=== PATIENT | female | born 1985 | race Caucasian/White ===

== ENCOUNTER 2017-05-14 21:52 | Outpatient (CLI) | payer OTHER, MEDICAID ==
[2017-05-14 22:35] LABS: APPEARANCE,URINE CLEAR; BILIRUBIN,URINE NEGATIVE (NEGATIVE); GLUCOSE, URINE 150 mg/dL (NEGATIVE); KETONES,URINE NEGATIVE (NEGATIVE); LEUKOCYTE ESTERASE,URINE NEGATIVE (NEGATIVE); NITRITE,URINE NEGATIVE (NEGATIVE); PROTEIN,URINE NEGATIVE (NEGATIVE); URINE SPECIFIC GRAVITY 1.002; UROBILINOGEN,URINE NEGATIVE mg/dL (<2.0)
[2017-05-14 22:51] LABS: URINE BARBITURATES SCREEN NEGATIVE; URINE METHADONE SCREEN NEGATIVE; URINE OPIATES LOW NEGATIVE; URINE PHENCYCLIDINE SCREEN NEGATIVE
--- NOTE | 2017-05-15 00:03 | Non Stress Test Report ---
Non Stress Test Datetime Report Generated by CPN: 05/15/2017 00:03 DEMOGRAPHIC EGA NST: 35.5 INDICATION Indication for Study: Ordered by Provider; Other Indication for Study (NST) Other: LC URINE RESULTS Urine Protein, NST: Negative Urine Ketones - NST: Negative Urine Glucose - NST: Negative Urine Blood - NST: Negative MONITORING Monitor Explained: Monitor Explained; Test Explained; Patient Verbalized Understanding Time on Monitor: 05/14/2017 22:08 Time off Monitor: 05/14/2017 23:09 NST Duration: 61 NST INTERVENTIONS NST Interventions: PO Hydration; Reposition Patient Physician Notified NST: Dr Lo BABY A: [id number] BABY A Movement : Present Contraction Frequency : 3-14 FHR Baseline : 140 Accelerations : 15X15 Decelerations : None Variability : Moderate 6-25bpm NST Review: Meets Criteria for Reactive NST NST Review and Verified By : Garcia Bowles RN NST Results: Reactive NST REPORT Report Trigger: Send Report
== END 2017-05-14 23:24 | disposition home or self-care (01) ==
LOC: LC 21:52
PROVIDERS: ATTEND Obstetrics & Gynecology Gynecology
PROC: 4A1HXCZ Monitoring of Products of Conception, Cardiac Rate, External Approach (ICD-10-PCS; principal; 2017-05-14)
DX: O47.03 False labor before 37 completed weeks of gestation, third trimester (principal); Z3A.35 35 weeks gestation of pregnancy
CPT/HCPCS: 80307; 81005

== ENCOUNTER 2017-05-21 10:58 | Outpatient (CLI) | payer OTHER, MEDICAID ==
--- NOTE | 2017-05-21 11:41 | Non Stress Test Report ---
Non Stress Test Datetime Report Generated by CPN: 05/21/2017 11:40 DEMOGRAPHIC EGA NST: 36.5 INDICATION Indication for Study: Ordered by Provider; Other VITAL SIGNS Temperature - NST: 98.1 Pulse - NST: 102 RESP - NST: 18 NBPSYS NST: 116 NBPDIA NST: 60 MONITORING Monitor Explained: Monitor Explained; Test Explained; Patient Verbalized Understanding Time on Monitor: 05/21/2017 11:10 NST INTERVENTIONS NST Interventions: PO Hydration; Reposition Patient Physician Notified NST: DR CHRISTOPHER BABY A: [id number] BABY A Movement : Present Contraction Frequency : NONE FHR Baseline : 150 Accelerations : 15X15 Decelerations : None Variability : Moderate 6-25bpm NST Review: Meets Criteria for Reactive NST NST Review and Verified By : Doreen Rouse [facility] NST Results: Reactive NST REPORT Report Trigger: Send Report
== END 2017-05-21 11:46 | disposition home or self-care (01) ==
LOC: LC 10:58
PROVIDERS: ATTEND Obstetrics & Gynecology
PROC: 4A1HXCZ Monitoring of Products of Conception, Cardiac Rate, External Approach (ICD-10-PCS; principal; 2017-05-21)
DX: Z36.89 Encounter for other specified antenatal screening (principal); Z3A.36 36 weeks gestation of pregnancy
CPT/HCPCS: 59025

== ENCOUNTER 2017-05-25 10:19 | Inpatient (IN) | payer OTHER, MEDICAID ==
[2017-05-25 11:25] LABS: AMNISURE (ROM) NEGATIVE (NEGATIVE)
[2017-05-25 11:30] LABS: APPEARANCE,URINE SLIGHTLY-CLOUDY; BILIRUBIN,URINE NEGATIVE (NEGATIVE); GLUCOSE, URINE NEGATIVE (NEGATIVE); KETONES,URINE NEGATIVE (NEGATIVE); LEUKOCYTE ESTERASE,URINE TRACE (NEGATIVE); NITRITE,URINE NEGATIVE (NEGATIVE); PROTEIN,URINE NEGATIVE (NEGATIVE); URINE SPECIFIC GRAVITY 1.003; UROBILINOGEN,URINE NEGATIVE mg/dL (<2.0)
[2017-05-25 11:45] LABS: URINE BARBITURATES SCREEN NEGATIVE; URINE METHADONE SCREEN NEGATIVE; URINE OPIATES LOW NEGATIVE; URINE PHENCYCLIDINE SCREEN NEGATIVE
[2017-05-25] MEDS ORDERED: RINGERS SOLUTION,LACTATED 1,000 ML IV ONE (11:51)
[2017-05-25 12:41] LABS: ABSOLUTE LYMPHOCYTES (AUTO) 2.1 10^3/uL (0.5-4.7); ABSOLUTE MONOCYTES (AUTO) 0.4 10^3/uL (0.1-1.4); ABSOLUTE NEUT (AUTO) 7.5 10^3/uL (1.7-8.2); BASOPHILS % (AUTO) 0.5 % (0-2); EOSINOPHILS % (AUTO) 0.5 % (0-6); HEMATOCRIT 29.6 % (36.0-47.0); HEMOGLOBIN 9.8 g/dL (12.0-15.5); HGB HCT DIFFERENCE -0.2; LYMPHOCYTES % (AUTO) 20.5 % (13-45); MEAN CORPUSCULAR HEMOGLOBIN 24.7 pg (27.0-33.4); MEAN CORPUSCULAR VOLUME 75 fl (80-97); MONOCYTES % (AUTO) 4.1 % (3-13); RED BLOOD COUNT 3.97 10^6/uL (3.72-5.28); SEGMENTED NEUTROPHILS % (AUTO) 74.4 % (42-78)
[2017-05-25] MEDS ORDERED: FENTANYL/BUPIVACAINE/NS/PF 200 MCG/100 ML RTUINJ EPI ONE (13:55)
[2017-05-25] MEDS ORDERED: EPHEDRINE SULFATE INJ 50 MG/1 ML AMPULE ONE (13:55)
[2017-05-25] MEDS ORDERED: BUPIVACAINE HCL 0.25 % INJ/PF (2.5 MG/1 ML) 30 ML VIAL ONE (13:56)
[2017-05-25] MEDS ORDERED: MISOPROSTOL 0.2 MG TABLET ONE (15:20)
--- NOTE | 2017-05-25 15:20 | L&D Progress Notes ---
PROGRESS NOTES Datetime Report Generated by CPN: 05/25/2017 15:19 PROGRESS NOTE Impression: Normal Progression of Labor Procedures: Artificial ROM; Sterile Vag Exam Plan: Continue Present Management Informed Consent Obtained: Vaginal Delivery Vital Signs : Reviewed; Within Normal Limits Comment: admitted for early active labor. Already was scheduled for IOL this pm due to MS, Mitochondrial myopathy, Psych issues (per MFM pt reports suicidal ideation in the past but would not act on it). MFM recommended BTL be done in hospital prior to discharge after baby is born. Cvx 5cm on admission. 6cm now and AROM clear fluid. Anticpate . VAGINAL EXAM Dilatation: 6 Effacement: 75 Station: -2 Contractions: irregular MEMBRANES Membranes: Ruptured Amniotic Fluid Color: Clear FETUS A FHR - Baseline: 135 Monitoring: External US Variability: Moderate 6-25bpm Accelerations: 15X15 Decelerations: None FHR Category: Category I Presentation: Vertex SIGNATURE SIGNATURE: [id number] SIGNATURE: [id number] SIGNATURE: [id number] SIGNATURE: [id number] Signature: with User ID: [email or web address]
[2017-05-25] MEDS ORDERED: LIDOCAINE 1% INJ-PF (10 MG/ML) 30 ML SDV ONE (15:21)
[2017-05-25] MEDS ORDERED: OXYTOCIN/NORMAL SALINE 20 UNIT/1,000 ML RTUINJ ONE (17:28)
[2017-05-25] MEDS ORDERED: PROMETHAZINE HCL 25 MG TABLET PO PRN (18:28)
[2017-05-25] MEDS ORDERED: PROMETHAZINE HCL INJ 25 MG/1 ML VIAL IV PRN (18:28)
[2017-05-25] MEDS ORDERED: DIBUCAINE 1% OINTMENT 28 GM TP PRN (18:28)
[2017-05-25] MEDS ORDERED: MAGNESIUM HYDROXIDE SUSP 30 ML UDCUP PO PRN (18:28)
[2017-05-25] MEDS ORDERED: ZOLPIDEM TARTRATE 5 MG TABLET PO PRN (18:28)
[2017-05-25] MEDS ORDERED: BENZOCAINE/MENTHOL AEROSOL SPRAY 56 ML TOP PRN (18:28)
[2017-05-25] MEDS ORDERED: PROMETHAZINE HCL 25 MG SUPP.RECT PR PRN (18:28)
[2017-05-25] MEDS ORDERED: OXYTOCIN/NORMAL SALINE 20 UNIT/1,000 ML RTUINJ IV PRN (18:28)
[2017-05-25] MEDS ORDERED: NA PHOS,M-B/NA PHOS,DI-BA (ADULT) 133 ML ENEMA PR PRN (18:28)
[2017-05-25] MEDS ORDERED: DIPH/PERTUSS(ACELL)/TETANUS VAC/PF 0.5 ML SYR (>=10YO) IM PRN (18:28)
[2017-05-25] MEDS ORDERED: GLYCERIN/WITCH HAZEL LEAF 1 EACH MED..PAD TP PRN (18:28)
[2017-05-25] MEDS ORDERED: DIPHENHYDRAMINE HCL 25 MG CAPSULE PO PRN (18:28)
[2017-05-25] MEDS ORDERED: PSEUDOEPHEDRINE HCL 30 MG TABLET PO PRN (18:28)
[2017-05-25] MEDS ORDERED: MEASLES,MUMPS&RUBELLA VACC/PF 0.5 ML VIAL SUBCUT PRN (18:28)
[2017-05-25] MEDS ORDERED: ACETAMINOPHEN 650 MG SUPP.RECT PR PRN (18:28)
[2017-05-25] MEDS ORDERED: DEXTROSE 40% GEL 15 GM TUBE PO PRN ×2 (18:32)
[2017-05-25] MEDS ORDERED: DEXTROSE 50%-WATER 25 GM/50 ML DISP.SYRIN IV PRN ×2 (18:32)
[2017-05-25] MEDS ORDERED: GLUCAGON,HUMAN RECOMB 1 MG INJ SUBCUT PRN (18:32)
[2017-05-25] MEDS ORDERED: MISOPROSTOL 0.2 MG TABLET PR ONE (18:33)
--- NOTE | 2017-05-25 19:51 | Delivery Summary ---
Del Sum A-C Datetime Report Generated by CPN: 05/25/2017 19:51 DELIVERY PERSONNEL DELIVERY PERSONNEL: [id number] Delivery Doctor:: Danita Rivera MD Labor and Delivery Nurse:: Nola Roblero RN Labor and Delivery Nurse:: Shanika Henry RN Admissions Supervisor/FOOD SERVICES MANAGER: Enid Sanz, GENERAL EXPEDITOR Admissions Supervisor/FOOD SERVICES MANAGER: Apolonia Pendleton CNA II Additional Personnel: : ELMER Pineda MATERNAL INFORMATION Delivery Anesthesia: Epidural Medications During Delivery: cytotec 1000mcg per rectum, Pitocin IV Medications After Delivery: Pitocin Drip 20 Units/1000ml NSS; Other-Please Comment Meds After Delivery Comment: 1000mcg Cytotec OK Estimated Blood Loss (ml): 250 Maternal Complications: None Provider Comments: VMI delivered in JONATHAN presentation. No nuchal cord. Shoulders and body delivered without difficulty. Cord doubly clamped and cut and infant to maternal abd for NRP. Placenta delivered intact spontaneously. FF at U. H/o hemorrhage with prior therefore cytotec 1000mcg given per rectum. SHe desires PPBTL so will make NPO after midnight. No perineal lacerations. Good hemostasis. Mother and baby stable upon provider leaving the room. LABOR SUMMARY EDC: 06/13/2017 00:00 No. Babies in Womb: 1 Attempted: No Labor Anesthesia: Epidural LABOR INFORMATION Reason for Induction: Not Applicable Reason for Induction- Other: Worsening MS, Psych issues, Mitochondrial Myopathy Onset of Labor: 05/25/2017 15:13 Complete Dilatation: 05/25/2017 17:41 Oxytocin: N/A Group B Beta Strep: negative Steroids Given: None Reason Steroids Not Administered: Not Applicable MEMBRANES Membranes Rupture Method: Artificial Rupture of Membranes: 05/25/2017 15:13 Length of Rupture (hr): 2.95 Amniotic Fluid Color: Clear Amniotic Fluid Amount: Moderate Amniotic Fluid Odor: Normal STAGES OF LABOR Stage 1 hr: 2 Stage 1 min: 28 Stage 2 hr: 0 Stage 2 min: 29 Stage 3 hr: 0 Stage 3 min: 4 Total Time in Labor hr: 3 Total Time in Labor min: 1 VAGINAL DELIVERY Episiotomy: None Laceration #1: None Laceration Extension #1: N/A Laceration Repair: Not Applicable CSECTION DELIVERY Primary Indication: N/A Secondary Indication: N/A CSection Incidence: N/A Labor: N/A Elective: N/A CSection Incision: N/A BABY A INFORMATION Infant Delivery Date/Time: 05/25/2017 18:10 Method of Delivery: Vaginal Born in Route : No : N/A Forceps: N/A Vacuum Extraction: N/A Shoulder Dystocia : No PRESENTATION/POSITION BABY A Presentation: Cephalic Cephalic Presentation: Vertex Vertex Position: Left Occipital Anterior Breech Presentation: N/A PLACENTA INFORMATION BABY A Placenta Delivery Time : 05/25/2017 18:14 Placenta Method of Delivery: Spontaneous Placenta Status: Delivered SCORES BABY A Heart Rate 1 min: >100 bpm Resp Effort 1 min: Good Cry Reflex Irritability 1 min: Cough or Sneeze or Pulls Away Muscle Tone 1 min: Active Motion Color 1 min: Body Peters, Extremities Blue SCORE 1 MIN: 9 Heart Rate 5 min: >100 bpm Resp Effort 5 min: Good Cry Reflex Irritability 5 min: Cough or Sneeze or Pulls Away Muscle Tone 5 min: Active Motion Color 5 min: Body Peters, Extremities Blue Resuscitation Effort 5 min: Tactile Stimulation SCORE 5 MIN: 9 INFORMATION BABY A Gestational Age at Delivery: 37.2 Gestational Status: Early Term- 37- 38.6 Weeks Infant Outcome : Liveborn Condition : Stable Sex: Male IDENTIFICATION BABY A Verification Date/Time: 05/25/2017 19:46 ID Band Number: [id number] Mother's Name Verified: Yes RN Verifying : O Noemí RN Additional Verifying Personnel: [facility] WEIGHT/LENGTH BABY A Infant Birthweight (gm): 3400 Infant Weight (lb): 7 Infant Weight (oz): 8 Length (in): 20.50 Infant Length (cm): 52.07 CORD INFORMATION BABY A No. Cord Vessels: 3 Nuchal Cord : N/A Cord Blood Taken: Yes-For Eval (Mom's Blood Type - or O+) Infant Suction: None ASSESSMENT BABY A Infant Complications: None Physical Findings at Delivery: Within Normal Limits Infant Respirations: Appears Normal Skin to Skin: Yes Skin to Skin Time (min): 60 Manager Freelance/ALS Called : No Infant Care By: Melissa Rouse RN Transferred To: Remains with Mother SIGNATURES Signature: with User ID: [email or web address]
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
[2017-05-25] MEDS: IBUPROFEN 800 MG TABLET PO SCH (21:23)
[2017-05-25] MEDS: FAMOTIDINE 20 MG TABLET PO SCH (21:26)
[2017-05-26] MEDS: IBUPROFEN 800 MG TABLET PO SCH (05:24)
[2017-05-26 07:25] LABS: HEMATOCRIT 29.6 % (36.0-47.0); HEMOGLOBIN 9.8 g/dL (12.0-15.5); HGB HCT DIFFERENCE -0.2; MEAN CORPUSCULAR HEMOGLOBIN 24.6 pg (27.0-33.4); MEAN CORPUSCULAR VOLUME 75 fl (80-97); RED BLOOD COUNT 3.97 10^6/uL (3.72-5.28); RED CELL DISTRIBUTION WIDTH 16.1 % (11.5-14.0); WHITE BLOOD COUNT 13.2 10^3/uL (4.0-10.5)
[2017-05-26 07:35] VITALS: BP 121/71
[2017-05-26] MEDS ORDERED: SENNOSIDES/DOCUSATE 8.6-50 MG 1 EACH TABLET PO SCH (10:00)
[2017-05-26] MEDS ORDERED: PRENATAL VITAMIN W DHA CAPSULE PO SCH (10:00)
[2017-05-26] MEDS: FAMOTIDINE 20 MG TABLET PO SCH (10:00)
[2017-05-26] MEDS ORDERED: DOCUSATE SODIUM 100 MG CAPSULE PO SCH (10:00)
[2017-05-26] MEDS ORDERED: FERROUS SULFATE 325 MG TABLET PO SCH (10:00)
--- NOTE | 2017-05-26 10:13 | PDOC PROGRESS REPORT ---
Subjective-OB Subjective: Post Delivery Day: 1 32 year old. Denies any needs at this time, states lochia is stable, pain well controlled, voiding without difficulty. Physical Exam (OB) Vital Signs: Temp Pulse Resp BP Pulse Ox 97.3 F 67 15 121/71 100 05/26/17 07:19 05/26/17 07:19 05/26/17 07:19 05/26/17 07:19 05/26/17 07:19 Intake & Output 05/25/17 05/26/17 05/27/17 06:59 06:59 06:59 Intake Total 300 Balance 300 Weight 77.2 kg - Lochia Lochia Amount: Small 10-25 ml Lochia Color: Rubra/Red - Abdomen Description: Soft, Round Hernia Present: No Fundal Description: Firm, Midline Fundal Height: u/u - u/2 Objective-Diagnostic Laboratory: 05/26/17 06:56 05/25/17 05/25/17 05/25/17 10:30 12:27 12:28 WBC 10.0 RBC 3.97 Hgb 9.8 L Hct 29.6 L MCV 75 L MCH 24.7 L MCHC 33.0 RDW 16.0 H Plt Count 242 Seg Neutrophils % 74.4 Lymphocytes % 20.5 Monocytes % 4.1 Eosinophils % 0.5 Basophils % 0.5 Absolute Neutrophils 7.5 Absolute Lymphocytes 2.1 Absolute Monocytes 0.4 Absolute Eosinophils 0.0 Absolute Basophils 0.0 Urine Color YELLOW Urine Appearance SLIGHTLY-CLOUDY Urine pH 7.0 Ur Specific [place] 1.003 Urine Protein NEGATIVE Urine Glucose (UA) NEGATIVE Urine Ketones NEGATIVE Urine Blood NEGATIVE Urine Nitrite NEGATIVE Ur Leukocyte Esterase TRACE H Urine WBC (Auto) 3 Urine RBC (Auto) 1 Blood Type O POSITIVE Antibody Screen NEGATIVE 05/26/17 06:56 WBC 13.2 H RBC 3.97 Hgb 9.8 L Hct 29.6 L MCV 75 L MCH 24.6 L MCHC 33.0 RDW 16.1 H Plt Count 184 Seg Neutrophils % Lymphocytes % Monocytes % Eosinophils % Basophils % Absolute Neutrophils Absolute Lymphocytes Absolute Monocytes Absolute Eosinophils Absolute Basophils Urine Color Urine Appearance Urine pH Ur Specific [place] Urine Protein Urine Glucose (UA) Urine Ketones Urine Blood Urine Nitrite Ur Leukocyte Esterase Urine WBC (Auto) Urine RBC (Auto) Blood Type Antibody Screen Assessment and Plan(PN) - Assessment and Plan (1) Grand multiparity in labor and delivery, antepartum Is this a current diagnosis for this admission?: Yes Plan: routine pp care (2) Mitochondrial myopathy Is this a current diagnosis for this admission?: Yes Plan: n/a (3) 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
--- NOTE | 2017-05-26 11:23 | PDOC DISCHARGE SUMMARY ---
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 Is this a current diagnosis for this admission?: Yes Discharge Data - Discharge Medication Home Medications: Dextroamphetamine/Amphetamine [Adderall 10 mg Tablet] 1 tab PO BID 05/07/17 Ferrous Sulfate [Iron] 1 tab PO BID 05/07/17 Escitalopram Oxalate [Lexapro 10 mg Tablet] 1 tab PO DAILY 05/21/17 Multivit-Min36/Iron/Folic Acid [Geritol Complete Tablet] 1 tab PO DAILY Omeprazole Magnesium [Prilosec Otc] 1 tab PO DAILY 05/21/17 Ranitidine HCl [Zantac] 1 tab PO DAILY 05/21/17 Docusate Sodium [Colace 100 mg Capsule] 100 mg PO BID #60 capsule 05/26/17 Ferrous Sulfate [Feosol 325 mg Tablet] 325 mg PO BID #60 tablet 05/26/17 Ibuprofen [Motrin 800 mg Tablet] 800 mg PO Q8 #60 tablet 05/26/17 Gestational Age: 37.2 Reason(s) for Admission: Induction of Labor Procedures: NST Intrapartum Procedure(s): Spontaneous Vaginal Delivery - [place] Data Baby 1 Male at 1 minute: 9 at 5 minutes: 9 Weight: 3400 kg Home with Mother: Yes Complications: No - Diagnosis Test Laboratory: Temp Pulse Resp BP Pulse Ox 97.3 F 67 15 121/71 100 05/26/17 07:19 05/26/17 07:19 05/26/17 07:19 05/26/17 07:19 05/26/17 07:19 05/25/17 05/25/17 05/26/17 10:30 12:27 06:56 RBC 3.97 3.97 Hgb 9.8 L 9.8 L Hct 29.6 L 29.6 L Urine Opiates Screen NEGATIVE - Discharge information/Instructions Discharge Activity: Activity As Tolerated, Pelvic Rest, No tub bath Discharge Diet: Regular Disposition: HOME, SELF-CARE Follow up with: [facility] in: 1, Weeks - mood check, extensive psych hx
== END 2017-05-26 12:30 | disposition home or self-care (01) | DRG 775 ==
LOC: LC 10:19 → LR 12:02 → 2S 20:15
PROVIDERS: ADMIT Student in an Organized Health Care Education/Training Program; ATTEND Student in an Organized Health Care Education/Training Program
PROC: 10E0XZZ Delivery of Products of Conception, External Approach (ICD-10-PCS; principal; 2017-05-25)
PROC: 4A1HXCZ Monitoring of Products of Conception, Cardiac Rate, External Approach (ICD-10-PCS; 2017-05-25)
DX: O99.354 Diseases of the nervous system complicating childbirth (principal); O99.344 Other mental disorders complicating childbirth; G71.3 Mitochondrial myopathy, not elsewhere classified; G35 Multiple sclerosis; F17.210 Nicotine dependence, cigarettes, uncomplicated; F41.9 Anxiety disorder, unspecified; F32.9 Major depressive disorder, single episode, unspecified; F31.9 Bipolar disorder, unspecified; Z88.6 Allergy status to analgesic agent; Z91.410 Personal history of adult physical and sexual abuse; Z37.0 Single live birth
CPT/HCPCS: 36415; 80307; 81001; 84112; 85025; 85027; 86592; 86850; 86900; 86901; 94760; J2590; J3490

== ENCOUNTER 2018-10-08 11:08 | Inpatient (IN) | payer MEDICAID, OTHER ==
[2018-10-08] MEDS ORDERED: ONDANSETRON HCL INJ/PF 4 MG/2 ML SDV IV ONE (11:28)
[2018-10-08] MEDS ORDERED: FENTANYL CITRATE INJ/PF 100 MCG/2 ML AMPUL IV ONE (11:28)
--- NOTE | 2018-10-08 11:30 | ER Document Report ---
ED Medical Screen (RME) - General Chief Complaint: Abdominal Pain Stated Complaint: CHEST AND BACK PAIN Time Seen by Provider: 10/08/18 11:24 Primary Care Provider: VALE WHITE MD [Primary Care Provider] - Follow up as needed Mode of Arrival: Ambulatory Information source: Patient Notes: Patient is a 33-year-old female who presents to the emergency department with 1 week history of epigastric pain. Patient reports the pain starts in her upper abdomen, radiates up to the epigastric area as well as right upper quadrant and shoots straight through to her back. Patient reports associated nausea, vomiting and diarrhea. She denies any fever. Exam: Significant tenderness to right upper quadrant. I have greeted and performed a rapid initial assessment of this patient. A comprehensive ED assessment and evaluation of the patient, analysis of test results and completion of the medical decision making process will be conducted by additional ED providers. Dictation of this chart was performed using voice recognition software; therefore, there may be some unintended grammatical errors. TRAVEL OUTSIDE OF THE [place] IN LAST 30 DAYS: No - Related Data Allergies/Adverse Reactions: morphine [Morphine] Adverse Reaction (Verified 05/21/17 11:18) Past Medical History Pulmonary Medical History: Reports: Hx Asthma Musculoskeltal Medical History: Reports Hx Multiple Sclerosis Psychiatric Medical History: Reports: Hx Anxiety, Hx Bipolar Disorder Past Surgical History: Reports: Hx Gynecologic Surgery - for endometroisis - Immunizations Hx Diphtheria, Pertussis, Tetanus Vaccination: Yes History of Influenza Vaccine for 04/2017 - 09/2017 Season: No Physical Exam - Vital signs Vitals: Temp Pulse Resp BP Pulse Ox 98.1 F 96 21 H 147/95 H 100 10/08/18 11:21 10/08/18 11:21 10/08/18 11:21 10/08/18 11:21 10/08/18 11:21 Course - Vital Signs Vital signs: Temp Pulse Resp BP Pulse Ox 98.1 F 96 21 H 147/95 H 100 10/08/18 11:21 10/08/18 11:21 10/08/18 11:21 10/08/18 11:21 10/08/18 11:21 Doctor's Discharge - Discharge Referrals: VALE WHITE MD [Primary Care Provider] - Follow up as needed
[2018-10-08 11:53] LABS: ABSOLUTE BASOPHILS # (AUTO) 0.1 10^3/uL (0.0-0.2); ABSOLUTE EOSINOPHILS # (AUTO) 0.2 10^3/uL (0.0-0.6); ABSOLUTE LYMPHOCYTES (AUTO) 2.1 10^3/uL (0.5-4.7); ABSOLUTE MONOCYTES (AUTO) 0.4 10^3/uL (0.1-1.4); EOSINOPHILS % (AUTO) 3.3 % (0-6); HEMATOCRIT 37.6 % (36.0-47.0); HEMOGLOBIN 12.5 g/dL (12.0-15.5); LYMPHOCYTES % (AUTO) 30.9 % (13-45); MEAN CORPUSCULAR HEMOGLOBIN 27.6 pg (27.0-33.4); MEAN CORPUSCULAR HGB CONC 33.3 g/dL (32.0-36.0); MEAN CORPUSCULAR VOLUME 83 fl (80-97); MONOCYTES % (AUTO) 5.8 % (3-13); PLATELET COUNT 309 10^3/uL (150-450); RED BLOOD COUNT 4.53 10^6/uL (3.72-5.28); RED CELL DISTRIBUTION WIDTH 17.7 % (11.5-14.0); TOTAL CELLS COUNTED % (AUTO) 100 %; WHITE BLOOD COUNT 6.9 10^3/uL (4.0-10.5)
[2018-10-08 12:06] LABS: AMORPHOUS SEDIMENT,URINE TRACE /HPF; APPEARANCE,URINE CLOUDY; BILIRUBIN,URINE NEGATIVE (NEGATIVE); COLOR,URINE YELLOW; GLUCOSE, URINE NEGATIVE (NEGATIVE); KETONES,URINE NEGATIVE (NEGATIVE); LEUKOCYTE ESTERASE,URINE NEGATIVE (NEGATIVE); NITRITE,URINE NEGATIVE (NEGATIVE); PROTEIN,URINE 30 mg/dL (NEGATIVE); URINE SPECIFIC GRAVITY 1.021; UROBILINOGEN,URINE NEGATIVE mg/dL (<2.0)
[2018-10-08 12:25] LABS: ALANINE AMINOTRANSFERASE 139 U/L (9-52); ALBUMIN 4.4 g/dL (3.5-5.0); ALKALINE PHOSPHATASE 116 U/L (38-126); ANION GAP 9 (5-19); ASPARTATE AMINO TRANSFERASE 186 U/L (14-36); BILIRUBIN,DIRECT 0.3 mg/dL (0.0-0.4); BILIRUBIN,TOTAL 0.5 mg/dL (0.2-1.3); BLOOD UREA NITROGEN 9 mg/dL (7-20); CALCIUM 10.1 mg/dL (8.4-10.2); CARBON DIOXIDE 23 mmol/L (22-30); CHLORIDE 104 mmol/L (98-107); GLUCOSE 103 mg/dL (75-110); LIPASE 1326.2 U/L (23-300); POTASSIUM 4.4 mmol/L (3.6-5.0); SODIUM 136.3 mmol/L (137-145); TOTAL PROTEIN 7.5 g/dL (6.3-8.2)
[2018-10-08] MEDS ORDERED: RINGERS SOLUTION,LACTATED 1,000 ML IV ONE (12:32)
[2018-10-08] MEDS ORDERED: HYDROMORPHONE HCL INJ/PF 2 MG/ML AMPULE IV ONE (12:33)
--- NOTE | 2018-10-08 12:37 | ER Document Report ---
ED General - General Chief Complaint: Abdominal Pain Stated Complaint: CHEST AND BACK PAIN Time Seen by Provider: 10/08/18 11:24 Primary Care Provider: VALE WHITE MD [Primary Care Provider] - Follow up as needed Mode of Arrival: Ambulatory Notes: Patient is a 33-year-old female that presents to the emergency department for chief complaint of epigastric abdominal pain. Patient reports having symptoms over the past week, but significant worse over the past few days, and today she had pain that radiated toward her back, with nausea, vomiting and diarrhea. Denies any blood in the vomiting. She denies any any fevers, chills, chest pain, shortness of breath, difficulty breathing. She states she does have a lot of nausea and diarrhea chronically. She states she usually does not eat much either, as a result. But it seems to be much worse over the past few days. She does admit to drinking 750 mL of liquor almost every day, she occasionally will not drink during a particular day, denies any history of alcohol withdrawal. Past Medical History: Mitochondrial myopathy Past Surgical History: Denies surgical history Social History: Admits to drinking alcohol on a daily basis, denies tobacco or illicit drug use. Family History: Reviewed and noncontributory for presenting illness Allergies: Reviewed, see documented allergy list. REVIEW OF SYSTEMS: Other than noted above, the 12 point review of systems was reviewed with the patient and were negative, all pertinent findings are included in the HPI. PHYSICAL EXAMINATION: Vital signs reviewed, nursing noted reviewed. GENERAL: Patient appears rather anxious, and uncomfortable on exam HEAD: Atraumatic, normocephalic. EYES: Eyes appear normal, extraocular movements intact, sclera anicteric, conjunctiva are normal. ENT: nares patent, oropharynx clear without exudates. Moist mucous membranes. NECK: Normal range of motion, supple without lymphadenopathy LUNGS: Breath sounds clear to auscultation bilaterally and equal. No wheezes rales or rhonchi. HEART: Heart rate tachycardic, regular rhythm ABDOMEN: Soft, significant epigastric tenderness to palpation as well as right upper quadrant tenderness with palpation, normoactive bowel sounds. No rebound, guarding, or rigidity. No masses appreciated. EXTREMITIES: Nontender, good range of motion, no pitting or edema. NEUROLOGICAL: No focal neurological deficits. Moves all extremities spontaneously Motor and sensory grossly intact on exam. PSYCH: Normal mood, normal affect. SKIN: Warm, Dry, normal turgor, no rashes or lesions noted on exposed skin TRAVEL OUTSIDE OF THE [place] IN LAST 30 DAYS: No - Related Data Allergies/Adverse Reactions: morphine [Morphine] Adverse Reaction (Verified 05/21/17 11:18) Past Medical History - General Information source: Patient - Social History Smoking Status: Unknown if Ever Smoked Family History: Reviewed & Not Pertinent Patient has suicidal ideation: No Patient has homicidal ideation: No Pulmonary Medical History: Reports: Hx Asthma Renal/ Medical History: Denies: Hx Peritoneal Dialysis Musculoskeletal Medical History: Reports Hx Multiple Sclerosis Psychiatric Medical History: Reports: Hx Anxiety, Hx Bipolar Disorder Past Surgical History: Reports: Hx Gynecologic Surgery - for endometroisis - Immunizations Hx Diphtheria, Pertussis, Tetanus Vaccination: Yes Physical Exam - Vital signs Vitals: Temp Pulse Resp BP Pulse Ox 98.1 F 96 21 H 147/95 H 100 10/08/18 11:21 10/08/18 11:21 10/08/18 11:21 10/08/18 11:21 10/08/18 11:21 Course - Re-evaluation Re-evalutation: Patient seen and examined vital signs reviewed. Laboratory data and imaging were ordered as appropriate for the patient's presenting symptoms and complaint, with consideration of any critical or life threatening conditions that may be associated with their obtained history and exam as noted above. Patient was treated with IV fluids, Zofran, and fentanyl initially Results were reviewed when available and demonstrated elevated lipase, and mild transaminitis, her right upper quadrant ultrasound was negative, no leukocytosis. The patient was re-evaluated and was still having some pain, she was given a one-time dose of IV Dilaudid 1 mg, which did seem to help her pain. Evaluation was most consistent with acute pancreatitis, and transaminitis Results were discussed with the patient at this point after careful consideration I feel that that patient should be admitted to the hospital. This was discussed with the patient that it is in the best interest for their care to be admitted for further evaluation and management. Patient agreed with this plan of care. A call was placed to the admitted physician, Enid Olvera CNP who graciously accepted the patient onto their service. *Note is created using voice recognition software and may contain spelling, syntax or grammatical errors. Laboratory 10/08/18 10/08/18 10/08/18 11:35 11:35 11:35 WBC 6.9 RBC 4.53 Hgb 12.5 Hct 37.6 MCV 83 MCH 27.6 MCHC 33.3 RDW 17.7 H Plt Count 309 Seg Neutrophils % 59.0 Lymphocytes % 30.9 Monocytes % 5.8 Eosinophils % 3.3 Basophils % 1.0 Absolute Neutrophils 4.0 Absolute Lymphocytes 2.1 Absolute Monocytes 0.4 Absolute Eosinophils 0.2 Absolute Basophils 0.1 Sodium 136.3 L Potassium 4.4 Chloride 104 Carbon Dioxide 23 Anion Gap 9 BUN 9 Creatinine 0.78 Est GFR ( Amer) > 60 Est GFR (Non-Af Amer) > 60 Glucose 103 Calcium 10.1 Total Bilirubin 0.5 Direct Bilirubin 0.3 Neonat Total Bilirubin Not Reportable Neonat Direct Bilirubin Not Reportable Neonat Indirect Bili Not Reportable AST 186 H ALT 139 H Alkaline Phosphatase 116 Total Protein 7.5 Albumin 4.4 Lipase 1326.2 H Serum HCG, Qual NEGATIVE Urine Color Urine Appearance Urine pH Ur Specific [place] Urine Protein Urine Glucose (UA) Urine Ketones Urine Blood Urine Nitrite Urine Bilirubin Urine Urobilinogen Ur Leukocyte Esterase Urine WBC (Auto) Urine RBC (Auto) U Hyaline Cast (Auto) Squamous Epi Cells Auto Amorphous Sediment Auto Urine Mucus (Auto) Urine Ascorbic Acid 10/08/18 11:35 WBC RBC Hgb Hct MCV MCH MCHC RDW Plt Count Seg Neutrophils % Lymphocytes % Monocytes % Eosinophils % Basophils % Absolute Neutrophils Absolute Lymphocytes Absolute Monocytes Absolute Eosinophils Absolute Basophils Sodium Potassium Chloride Carbon Dioxide Anion Gap BUN Creatinine Est GFR ( Amer) Est GFR (Non-Af Amer) Glucose Calcium Total Bilirubin Direct Bilirubin Neonat Total Bilirubin Neonat Direct Bilirubin Neonat Indirect Bili AST ALT Alkaline Phosphatase Total Protein Albumin Lipase Serum HCG, Qual Urine Color YELLOW Urine Appearance CLOUDY Urine pH 6.0 Ur Specific [place] 1.021 Urine Protein 30 H Urine Glucose (UA) NEGATIVE Urine Ketones NEGATIVE Urine Blood NEGATIVE Urine Nitrite NEGATIVE Urine Bilirubin NEGATIVE Urine Urobilinogen NEGATIVE Ur Leukocyte Esterase NEGATIVE Urine WBC (Auto) 2 Urine RBC (Auto) 1 U Hyaline Cast (Auto) 1 Squamous Epi Cells Auto 21 Amorphous Sediment Auto TRACE Urine Mucus (Auto) MANY Urine Ascorbic Acid 20 H Abdomen Ultrasound 10/08/18 11:28 IMPRESSION: FATTY INFILTRATION OF THE LIVER. OTHERWISE NORMAL RIGHT UPPER QUADRANT ULTRASOUND. - Vital Signs Vital signs: Temp Pulse Resp BP Pulse Ox 98.1 F 96 21 H 147/95 H 100 10/08/18 11:21 10/08/18 11:21 10/08/18 11:21 10/08/18 11:21 10/08/18 11:21 - Laboratory Result Diagrams: 10/08/18 11:35 10/08/18 11:35 Laboratory results interpreted by me: 10/08/18 10/08/18 10/08/18 11:35 11:35 11:35 RDW 17.7 H Sodium 136.3 L AST 186 H ALT 139 H Lipase 1326.2 H Urine Protein 30 H Urine Ascorbic Acid 20 H - EKG Interpretation by Me Additional EKG results interpreted by me: EKG demonstrates sinus tachycardia with a ventricular rate of 106 bpm, normal axis, QTC 457 ms, significant baseline artifact, nonspecific T wave inversion in leads V2 and V3, compared with prior EKG, without significant change. Discharge - Discharge Clinical Impression: Transaminitis Acute pancreatitis Qualifiers: Pancreatitis type: alcohol induced Acute pancreatitis complication: unspecified Qualified Code(s): K85.20 - Alcohol induced acute pancreatitis without necrosis or infection Alcohol dependence Qualifiers: Substance use status: uncomplicated Qualified Code(s): F10.20 - Alcohol depend ence, uncomplicated Condition: Stable Disposition: ADMITTED INPATIENT Admitting Provider: Enid Olvera RISK CONTROL ANALYST Unit Admitted: Telemetry Referrals: VALE WHITE MD [Primary Care Provider] - Follow up as needed
--- NOTE | 2018-10-08 12:41 | RADIOLOGY REPORT (SQ) ---
EXAM DESCRIPTION: U/S ABDOMEN LIMITED W/O DOP COMPLETED DATE/TIME: 10/08/2018 12:31 pm REASON FOR STUDY: epigastric pain, RUQ pain COMPARISON: None. TECHNIQUE: Dynamic and static grayscale images acquired of the abdomen and recorded on PACS. Additio gissell selected color Doppler and spectral images recorded. LIMITATIONS: None. FINDINGS: PANCREAS: Pancreatic head is normal in appearance. The body and tail are obscured by over lying bowel gas. LIVER: Echotexture is coarse with increased echogenicity consistent with fatty infiltration. The mya er is enlarged measured 19.3 cm. LIVER VASCULATURE: Normal directional flow of the main portal vein and hepatic veins. GALLBLADDER: No stones. Normal wall thickness. No pericholecystic fluid. ULTRASOUND-DETECTED FRANKS'S SIGN: Negative. INTRAHEPATIC DUCTS AND COMMON DUCT: CBD and intrahepatic ducts normal caliber. No filling defects. INFERIOR VENA CAVA: Normal flow. AORTA: No aneurysm. RIGHT KIDNEY: Normal size. Normal echogenicity. No solid or suspicious masses. No hydronephros is. No calcifications. PERITONEAL AND RIGHT PLEURAL SPACE: No ascites or effusions. OTHER: No other significant finding. IMPRESSION: FATTY INFILTRATION OF THE LIVER. OTHERWISE NORMAL RIGHT UPPER QUADRANT ULTRASOUND. TECHNICAL DOCUMENTATION: JOB ID: [id number] [employer]- All Rights Reserved Reading location - IP/workstation name: [email or web address]
--- NOTE | 2018-10-08 13:22 | EKG REPORT ---
SEVERITY:- BORDERLINE ECG - SINUS TACHYCARDIA PROBABLE LEFT ATRIAL ABNORMALITY NONSPECIFIC ST-T CHANGES DIFFUSE. : Confirmed by: Osmin Guzman MD 08-Oct-2018 13:22:00
[2018-10-08] MEDS ORDERED: ACETAMINOPHEN 325 MG TABLET PO PRN (14:05)
[2018-10-08] MEDS ORDERED: ONDANSETRON 4 MG TAB.RAPDIS PO PRN (14:05)
[2018-10-08] MEDS ORDERED: TRAMADOL HCL 50 MG TABLET PO PRN (14:15)
[2018-10-08] MEDS ORDERED: NORMAL SALINE 1000 ML 1,000 ML IV ONE (14:17)
[2018-10-08] MEDS ORDERED: ALBUTEROL SULFATE HFA (90 MCG/PUFF) 200 PUFF/8.5 GM MDI IH PRN ×2 (14:18→19:51)
[2018-10-08] MEDS: HYDROMORPHONE HCL INJ/PF 2 MG/ML AMPULE IV PRN ×2 (16:46→21:44)
[2018-10-08] MEDS ORDERED: LORAZEPAM INJ 2 MG/1 ML VIAL IV PRN (16:55)
--- NOTE | 2018-10-08 16:55 | PDOC H&P ---
History of Present Illness Admission Date/PCP: 10/08/18 13:16 VALE WHITE MD Patient complains of: Abdominal pain History of Present Illness: JOSE TRINIDAD is a 33 year old female with a PMH of asthma and daily EtOH use. She presents to [facility] emergency department with a 1 week complaint of abdominal pain. The patient endorses intermittent epigastric/LUQ abdominal pain. Denies nausea or vomiting, endorses diarrhea. The patient reports she took Motrin and Pepto-Bismol in an attempt to treat her symptoms, but offered no relief. Upon arrival to EKG reveals sinus tachycardia, T wave abnormalities in V3, no evidence of infarction or ischemia. Laboratory studies relatively benign with exception of an elevated lipase 1326. US of the abdomen relatively normal, only shows fatty infiltration of the liver. Upon evaluation, the patient is writhing in pain in bed. She points to her epigastric area stating her pain originates there and radiates to her back. The patient just returned from ultrasound, stating that the procedure was very painful because they had to push the probe all over her abdomen. The patient is alert and oriented x3, she answers all questions appropriately. Abdomen is mildly distended, positive bowel sounds,(+) TTP. Remaining physical exam is completely benign. Plan to admit to hospitalist service for acute pancreatitis. Past Medical History Pulmonary Medical History: Reports: Asthma Psychiatric Medical History: Reports: Bipolar Disorder Hematology: Reports: Anemia Past Surgical History Past Surgical History: Reports: Other - D&C Social History Information Source: Patient Lives with: Family Smoking Status: Current Every Day Smoker Cigarettes Packs Per Day: 1 Number of Years Smokin Frequency of Alcohol Use: Heavy Last Alcohol Use: 10/07/18 Hx Recreational Drug Use: No Drugs: None Hx Prescription Drug Abuse: No - Advance Directive Resuscitation Status: Full Code Family History Family History: CAD, DM, Hypertension, Other - Gallstones. Kidney stones Parental Family History Reviewed: Yes Children Family History Reviewed: Yes Sibling(s) Family History Reviewed.: Yes Medication/Allergy Home Medications: Albuterol Sulfate [Proair HFA Inhalation Aerosol 8.5 gm MDI] 2 puff IH Q4HP PRN 10/08/18 Buspirone HCl [Buspar 15 mg Tablet] 15 mg PO TID 10/08/18 Dextroamphetamine/Amphetamine [Adderall 10 mg Tablet] 10 mg PO DAILY@08,12 10/08/18 Ibuprofen [Motrin 800 mg Tablet] 800 mg PO Q8 10/08/18 Loratadine [Claritin 10 mg Tablet] 10 mg PO DAILY 10/08/18 Ranitidine HCl [Zantac 150 mg Tablet] 150 mg PO DAILY 10/08/18 Allergies/Adverse Reactions: morphine [Morphine] Adverse Reaction (Verified 05/21/17 11:18) Review of Systems Constitutional: ABSENT: chills, fever(s), headache(s), weight gain, weight loss Eyes: ABSENT: visual disturbances Ears: ABSENT: hearing changes Cardiovascular: ABSENT: chest pain, dyspnea on exertion, edema, orthropnea, palpitations Respiratory: ABSENT: cough, hemoptysis Gastrointestinal: PRESENT: abdominal pain, bloating, diarrhea, nausea. ABSENT: constipation, hematemesis, hematochezia, vomiting Genitourinary: ABSENT: dysuria, hematuria Musculoskeletal: ABSENT: joint swelling Integumentary: ABSENT: rash, wounds Neurological: ABSENT: abnormal gait, abnormal speech, confusion, dizziness, focal weakness, syncope Psychiatric: ABSENT: anxiety, depression, homidical ideation, suicidal ideation Endocrine: ABSENT: cold intolerance, heat intolerance, polydipsia, polyuria Hematologic/Lymphatic: ABSENT: easy bleeding, easy bruising Physical Exam Vital Signs: Temp Pulse Resp BP Pulse Ox 97.7 F 90 17 148/83 H 100 10/08/18 15:43 10/08/18 15:43 10/08/18 15:43 10/08/18 15:43 10/08/18 15:43 Intake & Output 10/07/18 10/08/18 10/09/18 06:59 06:59 06:59 Intake Total 1000 Balance 1000 Weight 74.6 kg General appearance: PRESENT: no acute distress, well-developed, well-nourished Head exam: PRESENT: atraumatic, normocephalic Eye exam: PRESENT: conjunctiva pink, EOMI, PERRLA. ABSENT: scleral icterus Ear exam: PRESENT: normal external ear exam Mouth exam: PRESENT: moist, tongue midline Neck exam: ABSENT: carotid bruit, JVD, lymphadenopathy, thyromegaly Respiratory exam: PRESENT: clear to auscultation elissa. ABSENT: rales, rhonchi, wheezes Cardiovascular exam: PRESENT: RRR. ABSENT: diastolic murmur, rubs, systolic murmur Pulses: PRESENT: normal dorsalis pedis pul Vascular exam: PRESENT: normal capillary refill GI/Abdominal exam: PRESENT: normal bowel sounds, soft, tenderness. ABSENT: distended, guarding, mass, organolmegaly, rebound Rectal exam: PRESENT: deferred Extremities exam: PRESENT: full ROM. ABSENT: calf tenderness, clubbing, pedal edema Neurological exam: PRESENT: alert, awake, oriented to person, oriented to place, oriented to time, oriented to situation, CN II-XII grossly intact. ABSENT: motor sensory deficit Psychiatric exam: PRESENT: appropriate affect, normal mood. ABSENT: homicidal ideation, suicidal ideation Skin exam: PRESENT: dry, intact, warm. ABSENT: cyanosis, rash Results Laboratory Results: 10/08/18 11:35 10/08/18 11:35 10/08/18 10/08/18 10/08/18 11:35 11:35 11:35 WBC 6.9 RBC 4.53 Hgb 12.5 Hct 37.6 MCV 83 MCH 27.6 MCHC 33.3 RDW 17.7 H Plt Count 309 Seg Neutrophils % 59.0 Lymphocytes % 30.9 Monocytes % 5.8 Eosinophils % 3.3 Basophils % 1.0 Absolute Neutrophils 4.0 Absolute Lymphocytes 2.1 Absolute Monocytes 0.4 Absolute Eosinophils 0.2 Absolute Basophils 0.1 Sodium 136.3 L Potassium 4.4 Chloride 104 Carbon Dioxide 23 Anion Gap 9 BUN 9 Creatinine 0.78 Est GFR ( Amer) > 60 Est GFR (Non-Af Amer) > 60 Glucose 103 Calcium 10.1 Total Bilirubin 0.5 AST 186 H ALT 139 H Alkaline Phosphatase 116 Total Protein 7.5 Albumin 4.4 Lipase 1326.2 H Serum HCG, Qual NEGATIVE Urine Color Urine Appearance Urine pH Ur Specific [place] Urine Protein Urine Glucose (UA) Urine Ketones Urine Blood Urine Nitrite Ur Leukocyte Esterase Urine WBC (Auto) Urine RBC (Auto) 10/08/18 11:35 WBC RBC Hgb Hct MCV MCH MCHC RDW Plt Count Seg Neutrophils % Lymphocytes % Monocytes % Eosinophils % Basophils % Absolute Neutrophils Absolute Lymphocytes Absolute Monocytes Absolute Eosinophils Absolute Basophils Sodium Potassium Chloride Carbon Dioxide Anion Gap BUN Creatinine Est GFR ( Amer) Est GFR (Non-Af Amer) Glucose Calcium Total Bilirubin AST ALT Alkaline Phosphatase Total Protein Albumin Lipase Serum HCG, Qual Urine Color YELLOW Urine Appearance CLOUDY Urine pH 6.0 Ur Specific [place] 1.021 Urine Protein 30 H Urine Glucose (UA) NEGATIVE Urine Ketones NEGATIVE Urine Blood NEGATIVE Urine Nitrite NEGATIVE Ur Leukocyte Esterase NEGATIVE Urine WBC (Auto) 2 Urine RBC (Auto) 1 Impressions: Abdomen Ultrasound 10/08/18 11:28 IMPRESSION: FATTY INFILTRATION OF THE LIVER. OTHERWISE NORMAL RIGHT UPPER QUADRANT ULTRASOUND. Assessment and Plan - Diagnosis (1) Acute pancreatitis Qualifiers: Pancreatitis type: alcohol induced Acute pancreatitis complication: unspecified Qualified Code(s): K85.20 - Alcohol induced acute pancreatitis without necrosis or infection Is this a current diagnosis for this admission?: Yes Plan: Lipase 1326 Likely stemming from daily alcohol intake Ultrasound negative, no plans for CT at this time Patient reports she drinks 750mL liquor per day Patient endorses feeling hungry, placed on regular diet As needed Zofran for nausea If patient experiences postprandial abdominal pain, bloating, nausea or vomiting -will switch to NPO IV Dilaudid as needed pain scale 4-5 P.o. tramadol or Tylenol as needed Continuous IVF (2) Asthma Qualifiers: Asthma severity: unspecified severity Asthma persistence: intermittent Is this a current diagnosis for this admission?: Yes Plan: [facility] asthma Pro Air inhaler as needed (3) Alcohol dependence Qualifiers: Substance use status: uncomplicated Qualified Code(s): F10.20 - Alcohol dependence, uncomplicated Is this a current diagnosis for this admission?: Yes Plan: Patient endorses consuming 750mL liquor every day As needed IV Ativan for agitation Daily thiamine and folate Banana bag nightly Fall and seizure precautions - Time Time Spent with patient: 15-24 minutes Medications reviewed and adjusted accordingly: Yes Anticipated discharge: Home Within: within 72 hours - Inpatient Certification Based on my medical assessment, after consideration of the patient's comorbidities, presenting symptoms, or acuity I expect that the services needed warrant INPATIENT care.: Yes I certify that my determination is in accordance with my understanding of Medicare's requirements for reasonable and necessary INPATIENT services [42 CFR 412.3e].: Yes Medical Necessity: Need For IV Fluids, Risk of Complication if Not Cared For in Hospital
[2018-10-08] MEDS: SENNOSIDES/DOCUSATE 8.6-50 MG 1 EACH TABLET PO SCH (18:50)
[2018-10-08] MEDS: FOLIC ACID 1 MG TABLET PO SCH (18:50)
[2018-10-08] MEDS: NORMAL SALINE 1000 ML 1,000 ML with POTASSIUM CHLORIDE 20 MEQ, MAGNESIUM SULFATE 8 MEQ,... IV SCH ×5 (21:38)
[2018-10-08] MEDS: FAMOTIDINE 20 MG TABLET PO SCH (21:40)
[2018-10-09] MEDS: HYDROMORPHONE HCL INJ/PF 2 MG/ML AMPULE IV PRN ×5 (02:17→19:38)
[2018-10-09 05:30] LABS: HEMATOCRIT 41.9 % (36.0-47.0); HEMOGLOBIN 13.7 g/dL (12.0-15.5); MEAN CORPUSCULAR HEMOGLOBIN 27.7 pg (27.0-33.4); MEAN CORPUSCULAR HGB CONC 32.8 g/dL (32.0-36.0); MEAN CORPUSCULAR VOLUME 84 fl (80-97); PLATELET COUNT 212 10^3/uL (150-450); RED BLOOD COUNT 4.97 10^6/uL (3.72-5.28); RED CELL DISTRIBUTION WIDTH 17.6 % (11.5-14.0); WHITE BLOOD COUNT 9.4 10^3/uL (4.0-10.5)
[2018-10-09 06:04] LABS: ALANINE AMINOTRANSFERASE 106 U/L (9-52); ALBUMIN 3.9 g/dL (3.5-5.0); ALKALINE PHOSPHATASE 107 U/L (38-126); ANION GAP 10 (5-19); ASPARTATE AMINO TRANSFERASE 127 U/L (14-36); BILIRUBIN,DIRECT 0.4 mg/dL (0.0-0.4); BILIRUBIN,TOTAL 1.1 mg/dL (0.2-1.3); BLOOD UREA NITROGEN 10 mg/dL (7-20); CALCIUM 9.6 mg/dL (8.4-10.2); CARBON DIOXIDE 21 mmol/L (22-30); CHLORIDE 104 mmol/L (98-107); GLUCOSE 104 mg/dL (75-110); POTASSIUM 4.7 mmol/L (3.6-5.0); SODIUM 135.2 mmol/L (137-145); TOTAL PROTEIN 6.9 g/dL (6.3-8.2)
[2018-10-09] MEDS: FAMOTIDINE 20 MG TABLET PO SCH ×2 (08:27→22:40)
[2018-10-09] MEDS: SENNOSIDES/DOCUSATE 8.6-50 MG 1 EACH TABLET PO SCH ×3 (09:33→17:39)
[2018-10-09] MEDS ORDERED: ENOXAPARIN SODIUM INJ 30 MG/0.3 ML DISP.SYRIN SUBCUT SCH (10:00)
[2018-10-09] MEDS: NORMAL SALINE 1000 ML 1,000 ML IV PRN (10:41)
[2018-10-09] MEDS ORDERED: BISACODYL 10 MG SUPP.RECT PR ONE (13:01)
[2018-10-09] MEDS ORDERED: BISACODYL 10 MG SUPP.RECT PR PRN (13:01)
[2018-10-09] MEDS: TRAMADOL HCL 50 MG TABLET PO PRN ×2 (13:08→18:07)
--- NOTE | 2018-10-09 16:23 | RADIOLOGY REPORT (SQ) ---
EXAM DESCRIPTION: CT ABD/PELVIS WITH IV ORAL COMPLETED DATE/TIME: 10/09/2018 4:05 pm REASON FOR STUDY: pancreatitis, abdo pain COMPARISON: None. TECHNIQUE: CT scan of the abdomen and pelvis performed using helical scanning technique with dynamic intravenous contrast injection. No oral contrast. Images reviewed with lung, soft tissue, and bone windows. Reconstructed coronal and sagittal MPR images reviewed. Delayed images for evaluation of the urinary system also acquired. All images stored on PACS. All CT scanners at this facility use dose modulation, iterative reconstruction, and/or weight based d osing when appropriate to reduce radiation dose to as low as reasonably achievable (ALARA). [facility]: Dose Right [facility]: CareDose [facility]: Dose Right [facility]: Teradose 4D [facility]: Microinox CONTRAST TYPE AND DOSE: contrast/concentration: Isovue 350.00 mg/ml; Total Contrast Delivered: 85.0 ml; Total Saline Delivered: 69.0 ml RENAL FUNCTION: GFR > 60. RADIATION DOSE: CT Rad equipment meets quality standard of care and radiation dose reduction techniq ues were employed. CTDIvol: 7.6 - 10.7 mGy. DLP: 1095 mGy-cm.. LIMITATIONS: None. FINDINGS: LOWER CHEST: No significant findings. No nodules or infiltrates. LIVER: Fatty change. No focal mass or biliary dilatation. SPLEEN: Normal size. No focal lesions. PANCREAS: Extensive inflammatory change in the lesser sac. Fairly homogeneous low-attenuation throug hout the pancreas. No necrosis. No pseudoaneurysm. No underlying mass. No pancreatic ductal dilat ation. GALLBLADDER: No identified stones by CT criteria. No inflammatory changes to suggest cholecystitis. ADRENAL GLANDS: No significant masses or asymmetry. RIGHT KIDNEY AND URETER: No solid masses. No significant calcifications. No hydronephrosis or hyd roureter. LEFT KIDNEY AND URETER: No solid masses. No significant calcifications. No hydronephrosis or hydr oureter. AORTA AND VESSELS: No aneurysm. No dissection. Renal arteries, SMA, celiac without stenosis. RETROPERITONEUM: No retroperitoneal adenopathy, hemorrhage or masses. BOWEL AND PERITONEAL CAVITY: No obstruction. Mild -moderate ascites. No free air. APPENDIX: Not visualized. PELVIS: Free fluid. No masses. ABDOMINAL WALL: Diastases. No significant hernia. BONES: No significant or acute findings. OTHER: No other significant finding. IMPRESSION: Acute pancreatitis. Mild -moderate ascites. TECHNICAL DOCUMENTATION: JOB ID: [id number] Quality ID # [id number]: Final reports with documentation of one or more dose reduction techniques (e.g., Au tomated exposure control, adjustment of the mA and/or kV according to patient size, use of iterative reconstruction technique) 2010 [employer]- All Rights Reserved Reading location - IP/workstation name: [email or web address]
--- NOTE | 2018-10-09 16:29 | PDOC PROGRESS REPORT ---
Subjective Progress Note for:: 10/09/18 Subjective:: Patient is very uncomfortable resting in bed. Abdomen is distended. Reason For Visit: PANCREATITIS Physical Exam Vital Signs: Temp Pulse Resp BP Pulse Ox 98.3 F 107 H 16 132/80 H 99 10/09/18 11:50 10/09/18 11:50 10/09/18 11:50 10/09/18 11:50 10/09/18 11:50 Intake & Output 10/08/18 10/09/18 10/10/18 06:59 06:59 06:59 Intake Total 1400 1023 Balance 1400 1023 Weight 74.6 kg General appearance: PRESENT: cooperative, severe distress, well-developed, other - Clearly in pain Head exam: PRESENT: atraumatic, normocephalic Respiratory exam: PRESENT: clear to auscultation elissa, symmetrical, unlabored. ABSENT: rales, rhonchi, wheezes Cardiovascular exam: PRESENT: +S1, +S2, tachycardia GI/Abdominal exam: PRESENT: distended, hypoactive bowel sounds - No bowel sounds detected., organolmegaly - Hepatomegaly, tenderness - Diffuse tenderness with distended abdomen. Rectal exam: PRESENT: deferred Extremities exam: ABSENT: pedal edema Musculoskeletal exam: PRESENT: normal inspection Neurological exam: PRESENT: alert, awake, oriented to person, oriented to place, oriented to time, oriented to situation, CN II-XII grossly intact Psychiatric exam: PRESENT: appropriate affect - Affect reflects her significant pain. ABSENT: agitated, anxious Focused psych exam: ABSENT: delusional, restlessness Results Laboratory Results: 10/09/18 04:43 10/09/18 04:43 10/09/18 10/09/18 04:43 04:43 WBC 9.4 RBC 4.97 Hgb 13.7 Hct 41.9 MCV 84 MCH 27.7 MCHC 32.8 RDW 17.6 H Plt Count 212 Sodium 135.2 L Potassium 4.7 Chloride 104 Carbon Dioxide 21 L Anion Gap 10 BUN 10 Creatinine 0.55 Est GFR ( Amer) > 60 Est GFR (Non-Af Amer) > 60 Glucose 104 Calcium 9.6 Magnesium 2.0 Total Bilirubin 1.1 AST 127 H ALT 106 H Alkaline Phosphatase 107 Total Protein 6.9 Albumin 3.9 Impressions: Abdomen Ultrasound 10/08/18 11:28 IMPRESSION: FATTY INFILTRATION OF THE LIVER. OTHERWISE NORMAL RIGHT UPPER QUADRANT ULTRASOUND. Assessment and Plan - Diagnosis (1) Acute pancreatitis Qualifiers: Pancreatitis type: alcohol induced Acute pancreatitis complication: uns pecified Qualified Code(s): K85.20 - Alcohol induced acute pancreatitis w ithout necrosis or infection Is this a current diagnosis for this admission?: Yes Plan: Still with significant abdominal pain. I will obtain a CT scan of the abdomen. (2) Alcohol dependence Qualifiers: Substance use status: uncomplicated Qualified Code(s): F10.20 - Alcohol dependence, uncomplicated Is this a current diagnosis for this admission?: Yes Plan: The patient reportedly drinks 1/5 of hard alcohol daily. Benzodiazepine therapy is available. She may need scheduled dosing. (3) Fatty liver, alcoholic Is this a current diagnosis for this admission?: Yes Plan: We will encourage abstinence from alcohol. Continue to monitor enzymes. (4) Transaminitis Is this a current diagnosis for this admission?: Yes Plan: Likely alcohol induced hepatitis. Continue to monitor. - Time Time Spent with patient: 15-24 minutes Medications reviewed and adjusted accordingly: Yes
[2018-10-09] MEDS: NORMAL SALINE 1000 ML 1,000 ML with POTASSIUM CHLORIDE 20 MEQ, MAGNESIUM SULFATE 8 MEQ,... IV SCH ×5 (17:40)
[2018-10-09] MEDS: FOLIC ACID 1 MG TABLET PO SCH (17:40)
[2018-10-09] MEDS ORDERED: ALBUTEROL SULFATE HFA (90 MCG/PUFF) 200 PUFF/8.5 GM MDI IH PRN (18:00)
--- NOTE | 2018-10-09 20:39 | PDOC CONSULTATION ---
Consultation Consult Date: 10/09/18 Attending physician:: SHELBY CUELLAR Consult reason:: Acute pancreatitis History of Present Illness Admission Date/PCP: 10/08/18 13:16 VALE WHITE MD Patient complains of: Abdominal pain nausea History of Present Illness: JOSE TRINIDAD is a 33 year old female Who presents emergency department complaining of a week history of abdominal pain, epigastric, radiating to the back, associated with some anorexia. Patient is a heavy drinker consuming approximately 750 cc of liquor a day. She denies history of pancreatitis, trauma, gallbladder disease, or family history of otitis. There is a strong family history of alcoholism. Patient was seen in the emergency department where she was found to have abdominal distention, el evated lipase, and an unremarkable gallbladder ultrasound except for fatty infiltration of the liver. The patient was admitted to the medical service for management of acute pancreatitis. CT scan of the abdomen and pelvis this evening revealed edematous pancreas with peripancreatic central mesenteric fluid, and ascites. Surgery was consulted Past Medical History Past Medical History: History of mitochondrial disorder with chronic fatigue, muscle weakness and extremity edema; Alcoholism Pulmonary Medical History: Reports: Asthma Psychiatric Medical History: Reports: Bipolar Disorder Hematology: Reports: Anemia Past Surgical History Past Surgical History: Reports: Other - D&C Social History Lives with: Family Smoking Status: Current Every Day Smoker Cigarettes Packs Per Day: 1 Number of Years Smokin Frequency of Alcohol Use: Heavy Hx Recreational Drug Use: No Drugs: None Hx Prescription Drug Abuse: No - Advance Directive Resuscitation Status: Full Code Family History Family History: CAD, DM, Hypertension, Other - Alcohol abuse; gallstones. Kidney stones Parental Family History Reviewed: Yes Children Family History Reviewed: Yes Sibling(s) Family History Reviewed.: Yes Medication/Allergy Home Medications: Albuterol Sulfate [Proair HFA Inhalation Aerosol 8.5 gm MDI] 2 puff IH Q4HP PRN 10/08/18 Buspirone HCl [Buspar 15 mg Tablet] 15 mg PO TID 10/08/18 Dextroamphetamine/Amphetamine [Adderall 10 mg Tablet] 10 mg PO DAILY@08,12 10/08/18 Ibuprofen [Motrin 800 mg Tablet] 800 mg PO Q8 10/08/18 Loratadine [Claritin 10 mg Tablet] 10 mg PO DAILY 10/08/18 Ranitidine HCl [Zantac 150 mg Tablet] 150 mg PO DAILY 10/08/18 Allergies/Adverse Reactions: morphine [Morphine] Adverse Reaction (Verified 05/21/17 11:18) Review of Systems Constitutional: PRESENT: as per HPI Eyes: ABSENT: visual disturbances Ears: ABSENT: hearing changes Respiratory: ABSENT: cough, hemoptysis Gastrointestinal: PRESENT: as per HPI, other - Patient denies history of trauma, admits to history of gastroesophageal reflux disease. Musculoskeletal: PRESENT: muscle weakness, other Neurological: PRESENT: weakness Physical Exam Vital Signs: Temp Pulse Resp BP Pulse Ox 98.5 F 112 H 16 119/73 98 10/09/18 20:21 10/09/18 20:21 10/09/18 20:21 10/09/18 20:21 10/09/18 20:21 Intake & Output 10/08/18 10/09/18 10/10/18 06:59 06:59 06:59 Intake Total 1400 2842 Balance 1400 2842 Weight 74.6 kg General appearance: PRESENT: mild distress Head exam: PRESENT: normocephalic Eye exam: PRESENT: EOMI Mouth exam: PRESENT: dry mucosa Neck exam: PRESENT: full ROM Respiratory exam: PRESENT: decreased breath sounds, other - In the bases bilaterally Cardiovascular exam: PRESENT: RRR Pulses: PRESENT: normal carotid pulses, normal radial pulses, normal dorsalis pedis pul GI/Abdominal exam: PRESENT: hypoactive bowel sounds, other - Moderate distention with striae;abdominal wall edematous. Diffuse abdominal tenderness and back tenderness Rectal exam: PRESENT: deferred Psychiatric exam: PRESENT: anxious Skin exam: PRESENT: dry Results Laboratory Results: 10/09/18 04:43 10/09/18 04:43 10/09/18 10/09/18 10/09/18 04:43 04:43 17:30 WBC 9.4 RBC 4.97 Hgb 13.7 Hct 41.9 MCV 84 MCH 27.7 MCHC 32.8 RDW 17.6 H Plt Count 212 Sodium 135.2 L Potassium 4.7 Chloride 104 Carbon Dioxide 21 L Anion Gap 10 BUN 10 Creatinine 0.55 Est GFR ( Amer) > 60 Est GFR (Non-Af Amer) > 60 Glucose 104 Calcium 9.6 Magnesium 2.0 Total Bilirubin 1.1 AST 127 H ALT 106 H Alkaline Phosphatase 107 Total Protein 6.9 Albumin 3.9 Lipase 9467.2 H Impressions: Abdomen Ultrasound 10/08/18 11:28 IMPRESSION: FATTY INFILTRATION OF THE LIVER. OTHERWISE NORMAL RIGHT UPPER QUADRANT ULTRASOUND. Abdomen/Pelvis CT 10/09/18 13:05 IMPRESSION: Acute pancreatitis. Mild -moderate ascites. Assessment & Plan - Diagnosis (1) Acute pancreatitis Qualifiers: Pancreatitis type: alcohol induced Acute pancreatitis complication: unspecified Qualified Code(s): K85.20 - Alcohol induced acute pancreatitis without necrosis or infection Is this a current diagnosis for this admission?: Yes Plan: Impression: Acute pancreatitis first episode alcohol induced, possibly deteriorating based on bump in lipase level today, and persisting abdominal and back pain. CT scan findings suggest acute inflammatory pancreatitis with significant third spacing. Recommendations: 1. Continue current management is strict n.p.o., IV fluids 2. I explained to the patient and her clinical condition may deteriorate, with further third spacing, pulmonary edema, oliguria, and even sepsis. Her acute pancreatitis is just unfolding. Her prolonged course requiring strict n.p.o., TPN etc. 3. Patient's underlying condition of alcoholism, mitochondrial myopathy, smoking abuse and other chronic conditions may impact her capacity to recover uneventfully from this pancreatic insult. 4. We will follow in consultation with you. Discussed the above with Dr. Cuellar (2) Alcohol dependence Qualifiers: Substance use status: uncomplicated Qualified Code(s): F10.20 - Alcohol dependence, uncomplicated Is this a current diagnosis for this admission?: Yes (3) Asthma Qualifiers: Asthma severity: unspecified severity Asthma persistence: intermittent Is this a current diagnosis for this admission?: Yes (4) Fatty liver, alcoholic Is this a current diagnosis for this admission?: Yes (5) Transaminitis Is this a current diagnosis for this admission?: Yes - Time Time Spent: 50 to 70 Minutes Smoking Cessation Education: over 10 minutes Medications reviewed and adjusted accordingly: Yes Anticipated discharge: Home
[2018-10-09] MEDS ORDERED: DIAZEPAM 2 MG TABLET PO SCH (22:00)
[2018-10-10] MEDS: HYDROMORPHONE HCL INJ/PF 2 MG/ML AMPULE IV PRN ×2 (00:36→05:01)
[2018-10-10] MEDS: NORMAL SALINE 1000 ML 1,000 ML IV PRN ×5 (00:41→16:52)
[2018-10-10] MEDS: ALBUTEROL SULFATE HFA (90 MCG/PUFF) 200 PUFF/8.5 GM MDI IH PRN (04:54)
[2018-10-10 06:28] LABS: HEMATOCRIT 34.6 % (36.0-47.0); MEAN CORPUSCULAR HEMOGLOBIN 28.3 pg (27.0-33.4); MEAN CORPUSCULAR HGB CONC 33.5 g/dL (32.0-36.0); MEAN CORPUSCULAR VOLUME 85 fl (80-97); PLATELET COUNT 160 10^3/uL (150-450); RED BLOOD COUNT 4.09 10^6/uL (3.72-5.28); RED CELL DISTRIBUTION WIDTH 17.6 % (11.5-14.0); WHITE BLOOD COUNT 10.2 10^3/uL (4.0-10.5)
[2018-10-10 06:29] LABS: HEMOGLOBIN 11.6 g/dL (12.0-15.5)
[2018-10-10 06:39] LABS: ALANINE AMINOTRANSFERASE 64 U/L (9-52); ALBUMIN 2.6 g/dL (3.5-5.0); ALKALINE PHOSPHATASE 77 U/L (38-126); ANION GAP 7 (5-19); ASPARTATE AMINO TRANSFERASE 64 U/L (14-36); BILIRUBIN,DIRECT 0.3 mg/dL (0.0-0.4); BILIRUBIN,TOTAL 0.6 mg/dL (0.2-1.3); BLOOD UREA NITROGEN 5 mg/dL (7-20); CALCIUM 7.8 mg/dL (8.4-10.2); CARBON DIOXIDE 22 mmol/L (22-30); CHLORIDE 104 mmol/L (98-107); GLUCOSE 79 mg/dL (75-110); SODIUM 133.4 mmol/L (137-145)
[2018-10-10 06:41] LABS: POTASSIUM 3.6 mmol/L (3.6-5.0)
[2018-10-10 07:06] LABS: LIPASE 5047.2 U/L (23-300)
[2018-10-10] MEDS ORDERED: ENOXAPARIN SODIUM INJ 30 MG/0.3 ML DISP.SYRIN SUBCUT SCH (08:30)
--- NOTE | 2018-10-10 08:40 | PDOC PROGRESS REPORT ---
Subjective Progress Note for:: 10/10/18 Subjective:: c/o abdominal pain and distention Reason For Visit: PANCREATITIS Physical Exam Vital Signs: Temp Pulse Resp BP Pulse Ox 98.3 F 106 H 15 128/75 H 100 10/10/18 04:02 10/10/18 04:02 10/10/18 04:02 10/10/18 04:02 10/10/18 04:02 Intake & Output 10/09/18 10/10/18 10/11/18 06:59 06:59 06:59 Intake Total 1400 5465 Balance 1400 5465 Weight 74.6 kg 74.2 kg General appearance: PRESENT: mild distress Respiratory exam: PRESENT: clear to auscultation elissa Cardiovascular exam: PRESENT: RRR GI/Abdominal exam: PRESENT: distended, hypoactive bowel sounds, soft, tenderness - diffusely, mild Results Laboratory Results: 10/10/18 05:38 10/10/18 05:38 10/09/18 10/10/18 10/10/18 17:30 05:38 05:38 WBC 10.2 RBC 4.09 Hgb 11.6 L D Hct 34.6 L MCV 85 MCH 28.3 MCHC 33.5 RDW 17.6 H Plt Count 160 Sodium 133.4 L Potassium 3.6 Chloride 104 Carbon Dioxide 22 Anion Gap 7 BUN 5 L Creatinine 0.48 L Est GFR ( Amer) > 60 Est GFR (Non-Af Amer) > 60 Glucose 79 Calcium 7.8 L Total Bilirubin 0.6 AST 64 H ALT 64 H Alkaline Phosphatase 77 Total Protein 5.0 L Albumin 2.6 L Lipase 9467.2 H 5047.2 H Impressions: Abdomen Ultrasound 10/08/18 11:28 IMPRESSION: FATTY INFILTRATION OF THE LIVER. OTHERWISE NORMAL RIGHT UPPER Q UADRANT ULTRASOUND. Abdomen/Pelvis CT 10/09/18 13:05 IMPRESSION: Acute pancreatitis. Mild -moderate ascites. Assessment & Plan - Diagnosis (1) Acute pancreatitis Qualifiers: Pancreatitis type: alcohol induced Acute pancreatitis complication: no infection or necrosis Qualified Code(s): K85.20 - Alcohol induced acute pancreatitis without necrosis or infection Is this a current diagnosis for this admission?: Yes (2) Alcohol dependence Qualifiers: Substance use status: uncomplicated Qualified Code(s): F10.20 - Alcohol dependence, uncomplicated Is this a current diagnosis for this admission?: Yes - Plan Summary Plan Summary: A/ Moderately severe acute alcoholic pancreatitis with ascites, no other complications noted on CT scan A/P Patient c/o mild abdominal pain and distention On physical exam, abdomen is distended, mildly tender, hypoactive to nonre bowel sounds WBC WNL except for mild anemia () most likely dilutional BMP= low Na (133) Serum Ca is low (7.8); however, her Albumin is 2.6, therefore corrected Ca should be about 8.6 LFT= mild transaminitis severe elevation lipase (5047, down from last evening 9467) P/ complete NPO: switch all meds to IV Avoid narcotic to prevent future addiction; will try acetamynophen/toradol IV c ombo Banana bag once a day Ativan for etoh w/d prophylaxis Monitor daily labs, lipase Monitor Ca daily, no need to replace it at this time PICC line tomorrow with TPN
[2018-10-10] MEDS: FAMOTIDINE INJ/PF 20 MG/2 ML SDV IV SCH ×2 (09:28→22:05)
[2018-10-10] MEDS: ACETAMINOPHEN 1,000 MG/100 ML RTUPB IV SCH ×3 (09:28→16:59)
[2018-10-10] MEDS: KETOROLAC TROMETHAMINE INJ/PF 30 MG/1 ML SDV IV PRN ×3 (09:28→22:05)
[2018-10-10] MEDS: ENOXAPARIN SODIUM INJ 40 MG/0.4 ML DISP.SYRIN SUBCUT SCH (12:16)
--- NOTE | 2018-10-10 12:30 | PDOC PROGRESS REPORT ---
Subjective Progress Note for:: 10/10/18 Subjective:: The patient feels slightly better today. She is not in as much pain. Reason For Visit: PANCREATITIS Physical Exam Vital Signs: Temp Pulse Resp BP Pulse Ox 98.6 F 93 17 119/67 95 10/10/18 11:57 10/10/18 11:57 10/10/18 11:57 10/10/18 11:57 10/10/18 11:57 Intake & Output 10/09/18 10/10/18 10/11/18 06:59 06:59 06:59 Intake Total 1400 5465 1067 Balance 1400 5465 1067 Weight 74.6 kg 74.2 kg General appearance: PRESENT: cooperative, mild distress, well-developed Head exam: PRESENT: atraumatic, normocephalic Eye exam: PRESENT: conjunctiva pink. ABSENT: scleral icterus Ear exam: PRESENT: normal external ear exam Respiratory exam: PRESENT: clear to auscultation elissa, symmetrical, unlabored. ABSENT: chest wall tenderness, rales, rhonchi, tachypnea, wheezes Cardiovascular exam: PRESENT: RRR, +S1, +S2, systolic murmur - 1-2/6 subtle murmur at right sternal border Pulses: PRESENT: normal dorsalis pedis pul GI/Abdominal exam: PRESENT: distended, hypoactive bowel sounds, organolmegaly - Hepatomegaly, soft, tenderness Rectal exam: PRESENT: deferred Extremities exam: ABSENT: calf tenderness, pedal edema Neurological exam: PRESENT: alert, awake, oriented to person, oriented to place, oriented to time, oriented to situation, CN II-XII grossly intact Psychiatric exam: PRESENT: flat affect. ABSENT: agitated, anxious Focused psych exam: ABSENT: delusional, restlessness Results Laboratory Results: 10/10/18 05:38 10/10/18 05:38 10/09/18 10/10/18 10/10/18 17:30 05:38 05:38 WBC 10.2 RBC 4.09 Hgb 11.6 L D Hct 34.6 L MCV 85 MCH 28.3 MCHC 33.5 RDW 17.6 H Plt Count 160 Sodium 133.4 L Potassium 3.6 Chloride 104 Carbon Dioxide 22 Anion Gap 7 BUN 5 L Creatinine 0.48 L Est GFR ( Amer) > 60 Est GFR (Non-Af Amer) > 60 Glucose 79 Calcium 7.8 L Total Bilirubin 0.6 AST 64 H ALT 64 H Alkaline Phosphatase 77 Total Protein 5.0 L Albumin 2.6 L Lipase 9467.2 H 5047.2 H Impressions: Abdomen Ultrasound 10/08/18 11:28 IMPRESSION: FATTY INFILTRATION OF THE LIVER. OTHERWISE NORMAL RIGHT UPPER QUADRANT ULTRASOUND. Abdomen/Pelvis CT 10/09/18 13:05 IMPRESSION: Acute pancreatitis. Mild -moderate ascites. Assessment and Plan - Diagnosis (1) Acute pancreatitis Qualifiers: Pancreatitis type: alcohol induced Acute pancreatitis complication: no infection or necrosis Qualified Code(s): K85.20 - Alcohol induced acute pancreatitis without necrosis or infection Is this a current diagnosis for this admission?: Yes Plan: Lipase peaked at 9000 yesterday and is down to 5000 today. Transaminases are improving. We had a discussion about the absolute need to stop alcohol use completely or risk liver and pancreas failure. (2) Alcohol dependence Qualifiers: Substance use status: uncomplicated Qualified Code(s): F10.20 - Alcohol dependence, uncomplicated Is this a current diagnosis for this admission?: Yes Plan: The patient does have a history of depression. She has been on SSRI medications and is on Adderall. I will have psychiatry work with the patient at this institution during her hospitalization. (3) Fatty liver, alcoholic Is this a current diagnosis for this admission?: Yes Plan: I did discuss the fact that fatty liver is a precursor to cirrhosis and I again reinforced the need for complete cessation of alcohol. (4) Transaminitis Is this a current diagnosis for this admission?: Yes Plan: Transaminases are slowly improving. (5) Depression Qualifiers: Depression Type: unspecified Qualified Code(s): F32.9 - Major depressive disorder, single episode, unspecified Is this a current diagnosis for this admission?: Yes Plan: The patient has seen and is seeing psychiatry. She has been on multiple different medications including different SSRIs and Lamictal. She is also on Adderall. We will have psych see the patient at this facility and continue to work with her (6) Mitochondrial myopathy Is this a current diagnosis for this admission?: Yes Plan: The patient had some information on this condition. She states that due to a mitochondrial dysfunction her muscles get very weak and can be quite painful. I will try and research further to get more information. - Time Time Spent with patient: 25-34 minutes Medications reviewed and adjusted accordingly: Yes
[2018-10-10] MEDS: LORAZEPAM INJ 2 MG/1 ML VIAL IV PRN ×3 (16:57→19:41)
[2018-10-10] MEDS: NORMAL SALINE 1000 ML 1,000 ML with POTASSIUM CHLORIDE 20 MEQ, MAGNESIUM SULFATE 8 MEQ,... IV SCH ×5 (19:35)
[2018-10-11] MEDS: ACETAMINOPHEN 1,000 MG/100 ML RTUPB IV SCH ×5 (00:20→23:13)
[2018-10-11] MEDS: NORMAL SALINE 1000 ML 1,000 ML IV PRN ×4 (00:21→15:55)
[2018-10-11] MEDS: ALBUTEROL SULFATE HFA (90 MCG/PUFF) 200 PUFF/8.5 GM MDI IH PRN ×4 (00:34→20:44)
[2018-10-11] MEDS: LORAZEPAM INJ 2 MG/1 ML VIAL IV PRN ×6 (06:09→23:14)
[2018-10-11 06:49] LABS: ABSOLUTE EOSINOPHILS # (AUTO) 0.2 10^3/uL (0.0-0.6); ABSOLUTE LYMPHOCYTES (AUTO) 0.8 10^3/uL (0.5-4.7); ABSOLUTE MONOCYTES (AUTO) 0.5 10^3/uL (0.1-1.4); ABSOLUTE NEUT (AUTO) 7.8 10^3/uL (1.7-8.2); BASOPHILS % (AUTO) 0.3 % (0-2); EOSINOPHILS % (AUTO) 2.4 % (0-6); HEMATOCRIT 32.4 % (36.0-47.0); HEMOGLOBIN 10.6 g/dL (12.0-15.5); LYMPHOCYTES % (AUTO) 8.8 % (13-45); MEAN CORPUSCULAR HGB CONC 32.7 g/dL (32.0-36.0); MEAN CORPUSCULAR VOLUME 86 fl (80-97); MONOCYTES % (AUTO) 5.5 % (3-13); PLATELET COUNT 156 10^3/uL (150-450); RED BLOOD COUNT 3.78 10^6/uL (3.72-5.28); TOTAL CELLS COUNTED % (AUTO) 100 %; WHITE BLOOD COUNT 9.4 10^3/uL (4.0-10.5)
[2018-10-11 07:08] LABS: ANION GAP 8 (5-19); BLOOD UREA NITROGEN 7 mg/dL (7-20); CARBON DIOXIDE 16 mmol/L (22-30); CHLORIDE 114 mmol/L (98-107); CHOLESTEROL 112.25 mg/dL (0-200); LIPASE 1676.3 U/L (23-300); POTASSIUM 3.7 mmol/L (3.6-5.0); SODIUM 137.6 mmol/L (137-145); TRIGLYCERIDES 89 mg/dL (<150)
[2018-10-11 07:18] LABS: DIRECT LDL 70 mg/dL (<100); GLUCOSE 50 mg/dL (75-110)
[2018-10-11] MEDS ORDERED: DEXTROSE 50%-WATER 25 GM/50 ML DISP.SYRIN IV ONE ×2 (08:03→08:30)
[2018-10-11] MEDS: FAMOTIDINE INJ/PF 20 MG/2 ML SDV IV SCH (10:00)
[2018-10-11] MEDS: ENOXAPARIN SODIUM INJ 40 MG/0.4 ML DISP.SYRIN SUBCUT SCH (10:01)
--- NOTE | 2018-10-11 10:21 | RADIOLOGY REPORT (SQ) ---
EXAM DESCRIPTION: PICC INSERTION; FLUORO/CV PLACEMENT; U/S GUIDE FOR VASCULAR ACCESS COMPLETED DATE/TIME: 10/11/2018 9:51 am REASON FOR STUDY: need of TPN; TPN COMPARISON: CT abdomen pelvis 10/09/2018 FLUOROSCOPY TIME: 1.1 minutes 1 digital fluoroscopic 1 ultrasound image saved to PACS. TECHNIQUE: Fluoroscopic and ultrasound guided PICC placement. LIMITATIONS: None. PROCEDURE: After written consent and assessment were obtained, the patient was brought into the fluo roscopy room and placed supine on the table. Ultrasound evaluation of potential access sites were per formed. After successfully identifying a patent left basilic vein, the left arm was prepped and drape d in a sterile fashion along with the ultrasound probe. The entry site was anesthetized with 1% lidoc natalee. A 21 gauge 7 cm needle was advanced through the skin and into the basilic vein under live ultra sound guidance. An ultrasound image was saved to PACS confirming access site. A .018 guide wire was then inserted through the needle and into the venous system. The needle was then removed and an 11 b lade scalpel was used to make a 1cm skin incision. A 5 fr peel-away sheath was advanced over the wir e and into the venous system. A measurement was then made using the existing wire and live fluoroscop ic guidance. The wire was then removed and trimmed. The PICC was advanced through the peel-away sheat h and into the venous system. The peel-away sheath was removed and the catheter was adhered to the pa tients arm with a stat lock. The catheter was then aspirated and flushed and a sterile bandage was pl aced over the access site. A fluoroscopic spot image was saved to PACS confirming the catheter tip w ithin the superior vena cava. IMPRESSION: SUCCESSFUL PLACEMENT OF A 5 FR DUAL LUMEN 28 CM PICC IN THE LEFT BASILIC VEIN. COMMENT: Patient medication list reviewed: Yes- Quality ID# [id number]:Eligible professional attests to doc umenting in the medical record they obtained, updated, or reviewed the patient's current medications. . Quality ID 145: Final reports for procedures using fluoroscopy that document radiation exposure tobias genna, or exposure time and number of fluorographic images (if radiation exposure indices are not avail able) Quality ID #76: The patient was prepped and draped using maximum sterile barrier technique including cap, mask, sterile gown, sterile gloves, a large sterile sheet, hand hygiene, and 2% Chlorhexidine fo r cutaneous antisepsis. When ultrasound is used, sterile ultrasound techniques are followed requiring sterile gel and sterile probes. TECHNICAL DOCUMENTATION: JOB ID: [id number] [employer]- All Rights Reserved rev-11/20 Reading location - IP/workstation name: [email or web address]
[2018-10-11] MEDS ORDERED: NORMAL SALINE 10 ML SDV (AFTER EACH USE) IV PRN (10:30)
--- NOTE | 2018-10-11 10:54 | PDOC PROGRESS REPORT ---
Subjective Progress Note for:: 10/11/18 Subjective:: still abdominal pain, improved, no n/v Reason For Visit: PANCREATITIS Physical Exam Vital Signs: Temp Pulse Resp BP Pulse Ox 98.9 F 109 H 16 132/71 H 96 10/11/18 07:37 10/11/18 07:37 10/11/18 07:37 10/11/18 07:37 10/11/18 07:37 Intake & Output 10/10/18 10/11/18 10/12/18 06:59 06:59 06:59 Intake Total 5465 6211 1000 Output Total 1000 Balance 5465 5211 1000 Weight 74.2 kg 73.6 kg General appearance: PRESENT: no acute distress, other - pale Respiratory exam: PRESENT: clear to auscultation elissa Cardiovascular exam: PRESENT: RRR GI/Abdominal exam: PRESENT: distended, hypoactive bowel sounds, soft, tenderness - slightly and diffusely Results Laboratory Results: 10/11/18 05:40 10/11/18 05:40 10/11/18 10/11/18 05:40 05:40 WBC 9.4 RBC 3.78 Hgb 10.6 L Hct 32.4 L MCV 86 MCH 28.0 MCHC 32.7 RDW 18.0 H Plt Count 156 Seg Neutrophils % 83.0 H Lymphocytes % 8.8 L Monocytes % 5.5 Eosinophils % 2.4 Basophils % 0.3 Absolute Neutrophils 7.8 Absolute Lymphocytes 0.8 Absolute Monocytes 0.5 Absolute Eosinophils 0.2 Absolute Basophils 0.0 Sodium 137.6 Potassium 3.7 Chloride 114 H Carbon Dioxide 16 L Anion Gap 8 BUN 7 Creatinine 0.51 L Est GFR ( Amer) > 60 Est GFR (Non-Af Amer) > 60 Glucose 50 L Calcium 8.0 L Magnesium 2.3 Triglycerides 89 Cholesterol 112.25 LDL Cholesterol Direct 70 VLDL Cholesterol 18.0 HDL Cholesterol 34 L Lipase 1676.3 H Impressions: Abdomen Ultrasound 10/08/18 11:28 IMPRESSION: FATTY INFILTRATION OF THE LIVER. OTHERWISE NORMAL RIGHT UPPER QUADRANT ULTRASOUND. Abdomen/Pelvis CT 10/09/18 13:05 IMPRESSION: Acute pancreatitis. Mild -moderate ascites. Guidance Fluoroscopy 10/11/18 00:00 IMPRESSION: SUCCESSFUL PLACEMENT OF A 5 FR DUAL LUMEN 28 CM PICC IN THE LEFT BASILIC VEIN. Interventional Vascular Procedure 10/11/18 00:00 IMPRESSION: SUCCESSFUL PLACEMENT OF A 5 FR DUAL LUMEN 28 CM PICC IN THE LEFT BASILIC VEIN. PICC Line Insertion 10/11/18 00:00 IMPRESSION: SUCCESSFUL PLACEMENT OF A 5 FR DUAL LUMEN 28 CM PICC IN THE LEFT B ASILIC VEIN. Assessment & Plan - Diagnosis (1) Acute pancreatitis Qualifiers: Pancreatitis type: alcohol induced Acute pancreatitis complication: no infection or necrosis Qualified Code(s): K85.20 - Alcohol induced acute pancreatitis without necrosis or infection Is this a current diagnosis for this admission?: Yes (2) Alcohol dependence Qualifiers: Substance use status: uncomplicated Qualified Code(s): F10.20 - Alcohol dependence, uncomplicated Is this a current diagnosis for this admission?: Yes - Plan Summary Plan Summary: A/ HD#3 for acute alcoholic pancreatitis vss, AF Good UO Normal WBC and lytes except for Ca 8.0 Abdomen softer, still distended, no peritonitis Lipase @ 1600 today P/ start TPN Total IVF 175 mL/hr (NS plus TPN) OOB/ambulate Keep NPO Lovenox s.c
[2018-10-11] MEDS ORDERED: DEXTROSE 40% GEL 15 GM TUBE X 2 PO PRN (13:00)
[2018-10-11] MEDS ORDERED: GLUCAGON,HUMAN RECOMB 1 MG INJ IM PRN (13:00)
[2018-10-11] MEDS ORDERED: DEXTROSE 10%-WATER 1,000 ML IV PRN (13:00)
[2018-10-11] MEDS ORDERED: DEXTROSE 50%-WATER SYRINGE 12.5 GM/25 ML DOSE IV PRN (13:00)
[2018-10-11] MEDS ORDERED: DEXTROSE 50%-WATER SYRINGE 25 GM/50 ML DOSE IV PRN (13:00)
[2018-10-11] MEDS ORDERED: DEXTROSE 40% GEL 15 GM TUBE PO PRN (13:00)
[2018-10-11] MEDS ORDERED: INSULIN REG, HUMAN 100 UNIT/ML 3 ML VIAL (PYX) SUBCUT PRN (13:00)
[2018-10-11] MEDS ORDERED: IPRATROPIUM/ALBUTEROL 0.5-2.5 MG/3 ML AMPUL NEB PRN (15:34)
[2018-10-11] MEDS: NORMAL SALINE 1000 ML 1,000 ML with POTASSIUM CHLORIDE 20 MEQ, MAGNESIUM SULFATE 8 MEQ,... IV SCH ×5 (17:40)
[2018-10-11] MEDS: AMINO ACIDS 5 %/DEXTROSE 20 % 1,000 ML IV PRN (20:45)
[2018-10-11] MEDS: FLUTICASONE NASAL SPRAY 50 MCG/SPRY 120 SPRAY/16 GM NAREB SCH (21:01)
[2018-10-11] MEDS: KETOROLAC TROMETHAMINE INJ/PF 30 MG/1 ML SDV IV PRN (21:01)
[2018-10-11] MEDS: NORMAL SALINE 10 ML SDV (SCHEDULED) IV SCH (21:04)
[2018-10-12] MEDS: ALBUTEROL SULFATE HFA (90 MCG/PUFF) 200 PUFF/8.5 GM MDI IH PRN ×5 (02:26→22:35)
[2018-10-12] MEDS: LORAZEPAM INJ 2 MG/1 ML VIAL IV PRN ×6 (05:14→22:36)
[2018-10-12] MEDS: ACETAMINOPHEN 1,000 MG/100 ML RTUPB IV SCH ×4 (05:15→23:10)
[2018-10-12 07:06] LABS: ABSOLUTE EOSINOPHILS # (AUTO) 0.2 10^3/uL (0.0-0.6); ABSOLUTE LYMPHOCYTES (AUTO) 0.8 10^3/uL (0.5-4.7); ABSOLUTE MONOCYTES (AUTO) 0.5 10^3/uL (0.1-1.4); ABSOLUTE NEUT (AUTO) 5.7 10^3/uL (1.7-8.2); BASOPHILS % (AUTO) 0.1 % (0-2); EOSINOPHILS % (AUTO) 3.1 % (0-6); HEMATOCRIT 27.1 % (36.0-47.0); HEMOGLOBIN 8.9 g/dL (12.0-15.5); LYMPHOCYTES % (AUTO) 11.4 % (13-45); MEAN CORPUSCULAR HEMOGLOBIN 28.2 pg (27.0-33.4); MEAN CORPUSCULAR VOLUME 86 fl (80-97); MONOCYTES % (AUTO) 6.3 % (3-13); PLATELET COUNT 155 10^3/uL (150-450); RED BLOOD COUNT 3.17 10^6/uL (3.72-5.28); RED CELL DISTRIBUTION WIDTH 18.4 % (11.5-14.0); SEGMENTED NEUTROPHILS % (AUTO) 79.1 % (42-78); TOTAL CELLS COUNTED % (AUTO) 100 %; WHITE BLOOD COUNT 7.2 10^3/uL (4.0-10.5)
[2018-10-12 09:15] LABS: ANION GAP 7 (5-19); BLOOD UREA NITROGEN 4 mg/dL (7-20); CARBON DIOXIDE 20 mmol/L (22-30); CHLORIDE 113 mmol/L (98-107); GLUCOSE 112 mg/dL (75-110); LIPASE 682.8 U/L (23-300); POTASSIUM 3.3 mmol/L (3.6-5.0); SODIUM 139.6 mmol/L (137-145)
[2018-10-12] MEDS: NORMAL SALINE 10 ML SDV (SCHEDULED) IV SCH ×2 (09:54→22:27)
[2018-10-12] MEDS: FLUTICASONE NASAL SPRAY 50 MCG/SPRY 120 SPRAY/16 GM NAREB SCH ×2 (10:04→22:35)
[2018-10-12] MEDS: ENOXAPARIN SODIUM INJ 40 MG/0.4 ML DISP.SYRIN SUBCUT SCH (10:04)
[2018-10-12] MEDS: NORMAL SALINE 1000 ML 1,000 ML IV PRN ×2 (10:05→17:57)
--- NOTE | 2018-10-12 15:46 | PDOC PROGRESS REPORT ---
Subjective Progress Note for:: 10/11/18 Subjective:: Patient was ambulating in the hallway earlier. She is resting in bed. It is still very uncomfortable for her to move but she reports feeling once again better than yesterday. Reason For Visit: PANCREATITIS Physical Exam Vital Signs: Temp Pulse Resp BP Pulse Ox 98.5 F 114 H 15 129/76 H 94 10/12/18 11:37 10/12/18 12:38 10/12/18 12:38 10/12/18 11:37 10/12/18 12:38 Intake & Output 10/11/18 10/12/18 10/13/18 06:59 06:59 06:59 Intake Total 6211 4423 100 Output Total 1000 2800 Balance 5211 1623 100 Weight 73.6 kg 74.6 kg General appearance: PRESENT: mild distress, well-developed Head exam: PRESENT: normocephalic Respiratory exam: PRESENT: clear to auscultation elissa, symmetrical, unlabored. ABSENT: rales, rhonchi, wheezes Cardiovascular exam: PRESENT: RRR, +S1, +S2. ABSENT: systolic murmur GI/Abdominal exam: PRESENT: soft, tenderness - Significant improvement in tenderness. Still with hepatomegaly. Rectal exam: PRESENT: deferred Neurological exam: PRESENT: alert, awake, oriented to person, oriented to place, oriented to time, oriented to situation, CN II-XII grossly intact Psychiatric exam: PRESENT: flat affect. ABSENT: agitated, anxious, suicidal ideation Focused psych exam: ABSENT: delusional, restlessness Results Laboratory Results: 10/12/18 06:38 10/12/18 08:42 10/12/18 10/12/18 10/12/18 06:38 06:38 08:42 WBC 7.2 RBC 3.17 L Hgb 8.9 L Hct 27.1 L MCV 86 MCH 28.2 MCHC 33.0 RDW 18.4 H Plt Count 155 Seg Neutrophils % 79.1 H Lymphocytes % 11.4 L Monocytes % 6.3 Eosinophils % 3.1 Basophils % 0.1 Absolute Neutrophils 5.7 Absolute Lymphocytes 0.8 Absolute Monocytes 0.5 Absolute Eosinophils 0.2 Absolute Basophils 0.0 Sodium Cancelled 139.6 Potassium Cancelled 3.3 L Chloride Cancelled 113 H Carbon Dioxide Cancelled 20 L Anion Gap Cancelled 7 BUN Cancelled 4 L Creatinine Cancelled 0.44 L Est GFR ( Amer) Cancelled > 60 Est GFR (Non-Af Amer) Cancelled > 60 Glucose Cancelled 112 H Calcium Cancelled 8.0 L Magnesium Cancelled 2.1 Lipase Cancelled 682.8 H Impressions: Abdomen Ultrasound 10/08/18 11:28 IMPRESSION: FATTY INFILTRATION OF THE LIVER. OTHERWISE NORMAL RIGHT UPPER QUADRANT ULTRASOUND. Abdomen/Pelvis CT 10/09/18 13:05 IMPRESSION: Acute pancreatitis. Mild -moderate ascites. Guidance Fluoroscopy 10/11/18 00:00 IMPRESSION: SUCCESSFUL PLACEMENT OF A 5 FR DUAL LUMEN 28 CM PICC IN THE LEFT BASILIC VEIN. Interventional Vascular Procedure 10/11/18 00:00 IMPRESSION: SUCCESSFUL PLACEMENT OF A 5 FR DUAL LUMEN 28 CM PICC IN THE LEFT BASILIC VEIN. PICC Line Insertion 10/11/18 00:00 IMPRESSION: SUCCESSFUL PLACEMENT OF A 5 FR DUAL LUMEN 28 CM PICC IN THE LEFT BASILIC VEIN. Assessment and Plan - Diagnosis (1) Acute pancreatitis Qualifiers: Pancreatitis type: alcohol induced Acute pancreatitis complication: no infection or necrosis Qualified Code(s): K85.20 - Alcohol induced acute pancreatitis without necrosis or infection Is this a current diagnosis for this admission?: Yes Plan: Continued improvement in enzymes. May be able to start clear liquids soon. (2) Alcohol dependence Qualifiers: Substance use status: uncomplicated Qualified Code(s): F10.20 - Alcohol dependence, uncomplicated Is this a current diagnosis for this admission?: Yes Plan: Will have psych see the patient. I have been made aware that she may be drinking alcohol to address the swallowing issue. Benzodiazepines have not helped her in the past. She would likely benefit from a true GI workup. (3) Fatty liver, alcoholic Is this a current diagnosis for this admission?: Yes Plan: Support alcohol abstinence (4) Transaminitis Is this a current diagnosis for this admission?: Yes Plan: Slowly improving (5) Depression Qualifiers: Depression Type: unspecified Qualified Code(s): F32.9 - Major depressive disorder, single episode, unspecified Is this a current diagnosis for this admission?: Yes Plan: Patient does have a psychiatrist locally. I will have psych see the patient while she is inpatient. (6) Mitochondrial myopathy Is this a current diagnosis for this admission?: Yes Plan: The patient had some information on this condition. She states that due to a mitochondrial dysfunction her muscles get very weak and can be quite painful. I will try and research further to get more information. - Time Time Spent with patient: Less than 15 minutes Medications reviewed and adjusted accordingly: Yes Anticipated discharge: Home
--- NOTE | 2018-10-12 18:35 | PDOC PROGRESS REPORT ---
Subjective Progress Note for:: 10/12/18 Subjective:: No adverse events overnight. No new complaints. Vital signs been stable. She denies any belly pain. She swears she is never going to drink alcohol or smoke ever again. Reason For Visit: PANCREATITIS Physical Exam Vital Signs: Temp Pulse Resp BP Pulse Ox 98.4 F 107 H 16 147/94 H 100 10/12/18 15:54 10/12/18 15:54 10/12/18 15:54 10/12/18 15:54 10/12/18 15:54 Intake & Output 10/11/18 10/12/18 10/13/18 06:59 06:59 06:59 Intake Total 6211 4423 1100 Output Total 1000 2800 Balance 5211 1623 1100 Weight 73.6 kg 74.6 kg General appearance: PRESENT: no acute distress, cooperative, disheveled Respiratory exam: PRESENT: clear to auscultation elissa, symmetrical, unlabored. ABSENT: accessory muscle use, crackles, prolonged expiratory phas, rhonchi, tachypnea, wheezes Cardiovascular exam: PRESENT: RRR, +S1, +S2 Pulses: PRESENT: normal carotid pulses Vascular exam: PRESENT: normal capillary refill GI/Abdominal exam: PRESENT: distended, normal bowel sounds, soft. ABSENT: guarding, rebound, tenderness Extremities exam: ABSENT: clubbing, pedal edema Musculoskeletal exam: PRESENT: normal inspection. ABSENT: deformity Neurological exam: PRESENT: alert, awake, oriented to person, oriented to place, oriented to time, oriented to situation Psychiatric exam: PRESENT: appropriate affect, normal mood Skin exam: PRESENT: dry, warm Results Laboratory Results: 10/12/18 06:38 10/12/18 08:42 10/12/18 10/12/18 10/12/18 06:38 06:38 08:42 WBC 7.2 RBC 3.17 L Hgb 8.9 L Hct 27.1 L MCV 86 MCH 28.2 MCHC 33.0 RDW 18.4 H Plt Count 155 Seg Neutrophils % 79.1 H Lymphocytes % 11.4 L Monocytes % 6.3 Eosinophils % 3.1 Basophils % 0.1 Absolute Neutrophils 5.7 Absolute Lymphocytes 0.8 Absolute Monocytes 0.5 Absolute Eosinophils 0.2 Absolute Basophils 0.0 Sodium Cancelled 139.6 Potassium Cancelled 3.3 L Chloride Cancelled 113 H Carbon Dioxide Cancelled 20 L Anion Gap Cancelled 7 BUN Cancelled 4 L Creatinine Cancelled 0.44 L Est GFR ( Amer) Cancelled > 60 Est GFR (Non-Af Amer) Cancelled > 60 Glucose Cancelled 112 H Calcium Cancelled 8.0 L Magnesium Cancelled 2.1 Lipase Cancelled 682.8 H Impressions: Abdomen Ultrasound 10/08/18 11:28 IMPRESSION: FATTY INFILTRATION OF THE LIVER. OTHERWISE NORMAL RIGHT UPPER QUADRANT ULTRASOUND. Abdomen/Pelvis CT 10/09/18 13:05 IMPRESSION: Acute pancreatitis. Mild -moderate ascites. Guidance Fluoroscopy 10/11/18 00:00 IMPRESSION: SUCCESSFUL PLACEMENT OF A 5 FR DUAL LUMEN 28 CM PICC IN THE LEFT BASILIC VEIN. Interventional Vascular Procedure 10/11/18 00:00 IMPRESSION: SUCCESSFUL PLACEMENT OF A 5 FR DUAL LUMEN 28 CM PICC IN THE LEFT BASILIC VEIN. PICC Line Insertion 10/11/18 00:00 IMPRESSION: SUCCESSFUL PLACEMENT OF A 5 FR DUAL LUMEN 28 CM PICC IN THE LEFT BASILIC VEIN. Assessment and Plan - Diagnosis (1) Acute pancreatitis Qualifiers: Pancreatitis type: alcohol induced Acute pancreatitis complication: no infection or necrosis Qualified Code(s): K85.20 - Alcohol induced acute pancreatitis without necrosis or infection Is this a current diagnosis for this admission?: Yes Plan: She got a PICC line yesterday and TPN was started. Surgery has advanced her diet to clears today. We will see how she tolerates before stopping TPN and advancing her diet further. (2) Alcohol dependence Qualifiers: Substance use status: uncomplicated Qualified Code(s): F10.20 - Alcohol dependence, uncomplicated Is this a current diagnosis for this admission?: Yes Plan: Will have psych see the patient. I have been made aware that she may be drinking alcohol to address the swallowing issue. Benzodiazepines have not helped her in the past. She would likely benefit from a true GI workup. (3) Fatty liver, alcoholic Is this a current diagnosis for this admission?: Yes Plan: Support alcohol abstinence - Time Time Spent with patient: 15-24 minutes
--- NOTE | 2018-10-12 20:04 | PDOC PROGRESS REPORT ---
Subjective Progress Note for:: 10/12/18 Subjective:: Is a 33-year-old female with alcoholic pancreatitis. She reports that her abdominal pain is improving. She denies fevers, chills, chest pain, shortness of breath, nausea, vomiting, fatigue, or malaise. The patient reports that she is hungry and would like to eat. Reason For Visit: PANCREATITIS Physical Exam Vital Signs: Temp Pulse Resp BP Pulse Ox 98.4 F 107 H 16 147/94 H 100 10/12/18 15:54 10/12/18 15:54 10/12/18 15:54 10/12/18 15:54 10/12/18 15:54 Intake & Output 10/11/18 10/12/18 10/13/18 06:59 06:59 06:59 Intake Total 6211 4423 1400 Output Total 1000 2800 2000 Balance 5211 1623 -600 Weight 73.6 kg 74.6 kg General appearance: PRESENT: no acute distress, cooperative Head exam: PRESENT: atraumatic, normocephalic Eye exam: PRESENT: EOMI, PERRLA. ABSENT: scleral icterus Mouth exam: PRESENT: moist, neck supple Neck exam: ABSENT: meningismus, tenderness, thyromegaly, tracheal deviation Respiratory exam: PRESENT: clear to auscultation elissa, unlabored. ABSENT: chest wall tenderness, tachypnea, wheezes Cardiovascular exam: PRESENT: RRR Pulses: PRESENT: normal radial pulses GI/Abdominal exam: PRESENT: distended, soft. ABSENT: firm, guarding, rigid, tenderness Rectal exam: PRESENT: deferred Extremities exam: ABSENT: clubbing Musculoskeletal exam: ABSENT: deformity Neurological exam: PRESENT: alert, awake, oriented to person, oriented to place, oriented to time, oriented to situation Psychiatric exam: ABSENT: agitated, anxious, depressed Focused psych exam: ABSENT: delusional Skin exam: ABSENT: cyanosis, erythema, jaundice Results Laboratory Results: 10/12/18 06:38 10/12/18 08:42 10/12/18 10/12/18 10/12/18 06:38 06:38 08:42 WBC 7.2 RBC 3.17 L Hgb 8.9 L Hct 27.1 L MCV 86 MCH 28.2 MCHC 33.0 RDW 18.4 H Plt Count 155 Seg Neutrophils % 79.1 H Lymphocytes % 11.4 L Monocytes % 6.3 Eosinophils % 3.1 Basophils % 0.1 Absolute Neutrophils 5.7 Absolute Lymphocytes 0.8 Absolute Monocytes 0.5 Absolute Eosinophils 0.2 Absolute Basophils 0.0 Sodium Cancelled 139.6 Potassium Cancelled 3.3 L Chloride Cancelled 113 H Carbon Dioxide Cancelled 20 L Anion Gap Cancelled 7 BUN Cancelled 4 L Creatinine Cancelled 0.44 L Est GFR ( Amer) Cancelled > 60 Est GFR (Non-Af Amer) Cancelled > 60 Glucose Cancelled 112 H Calcium Cancelled 8.0 L Magnesium Cancelled 2.1 Lipase Cancelled 682.8 H Impressions: Abdomen Ultrasound 10/08/18 11:28 IMPRESSION: FATTY INFILTRATION OF THE LIVER. OTHERWISE NORMAL RIGHT UPPER QUADRANT ULTRASOUND. Abdomen/Pelvis CT 10/09/18 13:05 IMPRESSION: Acute pancreatitis. Mild -moderate ascites. Guidance Fluoroscopy 10/11/18 00:00 IMPRESSION: SUCCESSFUL PLACEMENT OF A 5 FR DUAL LUMEN 28 CM PICC IN THE LEFT BASILIC VEIN. Interventional Vascular Procedure 10/11/18 00:00 IMPRESSION: SUCCESSFUL PLACEMENT OF A 5 FR DUAL LUMEN 28 CM PICC IN THE LEFT BASILIC VEIN. PICC Line Insertion 10/11/18 00:00 IMPRESSION: SUCCESSFUL PLACEMENT OF A 5 FR DUAL LUMEN 28 CM PICC IN THE LEFT BASILIC VEIN. Assessment & Plan - Diagnosis (1) Acute pancreatitis Qualifiers: Pancreatitis type: alcohol induced Acute pancreatitis complication: no infection or necrosis Qualified Code(s): K85.20 - Alcohol induced acute pancreatitis without necrosis or infection Is this a current diagnosis for this admission?: Yes (2) Alcohol dependence Qualifiers: Substance use status: uncomplicated Qualified Code(s): F10.20 - Alcohol dependence, uncomplicated Is this a current diagnosis for this admission?: Yes - Plan Summary Plan Summary: Is a 33-year-old female with alcoholic pancreatitis. Her gallbladder ultrasound is normal. Her lipase has improved significantly over the last several days. She reports that she is hungry. I will begin her on a clear liquid diet. I will monitor her for abdominal pain. Continue TPN for now. As long as the patient tolerates clear liquids, plan to advance her tomorrow.
[2018-10-12] MEDS: AMINO ACIDS 5 %/DEXTROSE 20 % 1,000 ML IV PRN (20:13)
[2018-10-13] MEDS: LORAZEPAM INJ 2 MG/1 ML VIAL IV PRN ×4 (00:38→13:25)
[2018-10-13] MEDS: ACETAMINOPHEN 1,000 MG/100 ML RTUPB IV SCH (05:49)
[2018-10-13] MEDS: NORMAL SALINE 1000 ML 1,000 ML IV PRN ×2 (06:03→10:47)
[2018-10-13 06:52] LABS: ABSOLUTE EOSINOPHILS # (AUTO) 0.3 10^3/uL (0.0-0.6); ABSOLUTE LYMPHOCYTES (AUTO) 1.2 10^3/uL (0.5-4.7); ABSOLUTE MONOCYTES (AUTO) 0.6 10^3/uL (0.1-1.4); ABSOLUTE NEUT (AUTO) 4.6 10^3/uL (1.7-8.2); BASOPHILS % (AUTO) 0.4 % (0-2); EOSINOPHILS % (AUTO) 4.8 % (0-6); HEMATOCRIT 26.2 % (36.0-47.0); HEMOGLOBIN 8.7 g/dL (12.0-15.5); LYMPHOCYTES % (AUTO) 18.4 % (13-45); MEAN CORPUSCULAR HEMOGLOBIN 28.1 pg (27.0-33.4); MEAN CORPUSCULAR HGB CONC 33.1 g/dL (32.0-36.0); MEAN CORPUSCULAR VOLUME 85 fl (80-97); MONOCYTES % (AUTO) 8.8 % (3-13); PLATELET COUNT 188 10^3/uL (150-450); RED BLOOD COUNT 3.08 10^6/uL (3.72-5.28); RED CELL DISTRIBUTION WIDTH 18.6 % (11.5-14.0); SEGMENTED NEUTROPHILS % (AUTO) 67.6 % (42-78); TOTAL CELLS COUNTED % (AUTO) 100 %; WHITE BLOOD COUNT 6.7 10^3/uL (4.0-10.5)
[2018-10-13 07:08] LABS: ANION GAP 6 (5-19); BLOOD UREA NITROGEN 3 mg/dL (7-20); CALCIUM 8.2 mg/dL (8.4-10.2); CARBON DIOXIDE 21 mmol/L (22-30); CHLORIDE 113 mmol/L (98-107); GLUCOSE 81 mg/dL (75-110); LIPASE 494.7 U/L (23-300); POTASSIUM 3.3 mmol/L (3.6-5.0); SODIUM 139.5 mmol/L (137-145)
--- NOTE | 2018-10-13 08:27 | PDOC PROGRESS REPORT ---
Subjective Progress Note for:: 10/13/18 Subjective:: feels better, no abd pain Reason For Visit: PANCREATITIS Physical Exam Vital Signs: Temp Pulse Resp BP Pulse Ox 98.2 F 83 16 135/82 H 95 10/13/18 00:49 10/13/18 07:55 10/13/18 07:55 10/13/18 00:49 10/13/18 07:55 Intake & Output 10/12/18 10/13/18 10/14/18 06:59 06:59 06:59 Intake Total 4423 4450 Output Total 2800 4850 Balance 1623 -400 Weight 74.6 kg 87.3 kg General appearance: PRESENT: no acute distress Eye exam: PRESENT: EOMI Mouth exam: PRESENT: moist Neck exam: PRESENT: full ROM Respiratory exam: PRESENT: clear to auscultation elissa Cardiovascular exam: PRESENT: RRR Pulses: PRESENT: normal radial pulses, normal femoral pulses GI/Abdominal exam: PRESENT: soft Rectal exam: PRESENT: deferred Extremities exam: PRESENT: full ROM Musculoskeletal exam: PRESENT: full ROM Neurological exam: PRESENT: alert, awake, oriented to person, oriented to place, oriented to time, oriented to situation Skin exam: PRESENT: dry Results Laboratory Results: 10/13/18 05:40 10/13/18 05:40 10/12/18 10/13/18 10/13/18 08:42 05:40 05:40 WBC 6.7 RBC 3.08 L Hgb 8.7 L Hct 26.2 L MCV 85 MCH 28.1 MCHC 33.1 RDW 18.6 H Plt Count 188 Seg Neutrophils % 67.6 Lymphocytes % 18.4 Monocytes % 8.8 Eosinophils % 4.8 Basophils % 0.4 Absolute Neutrophils 4.6 Absolute Lymphocytes 1.2 Absolute Monocytes 0.6 Absolute Eosinophils 0.3 Absolute Basophils 0.0 Sodium 139.6 139.5 Potassium 3.3 L 3.3 L Chloride 113 H 113 H Carbon Dioxide 20 L 21 L Anion Gap 7 6 BUN 4 L 3 L Creatinine 0.44 L 0.48 L Est GFR ( Amer) > 60 > 60 Est GFR (Non-Af Amer) > 60 > 60 Glucose 112 H 81 Calcium 8.0 L 8.2 L Magnesium 2.1 1.9 Lipase 682.8 H 494.7 H Impressions: Abdomen Ultrasound 10/08/18 11:28 IMPRESSION: FATTY INFILTRATION OF THE LIVER. OTHERWISE NORMAL RIGHT UPPER QUADRANT ULTRASOUND. Abdomen/Pelvis CT 10/09/18 13:05 IMPRESSION: Acute pancreatitis. Mild -moderate ascites. Guidance Fluoroscopy 10/11/18 00:00 IMPRESSION: SUCCESSFUL PLACEMENT OF A 5 FR DUAL LUMEN 28 CM PICC IN THE LEFT BASILIC VEIN. Interventional Vascular Procedure 10/11/18 00:00 IMPRESSION: SUCCESSFUL PLACEMENT OF A 5 FR DUAL LUMEN 28 CM PICC IN THE LEFT BASILIC VEIN. PICC Line Insertion 10/11/18 00:00 IMPRESSION: SUCCESSFUL PLACEMENT OF A 5 FR DUAL LUMEN 28 CM PICC IN THE LEFT BASILIC VEIN. Assessment & Plan - Plan Summary Plan Summary: resolving etoh induced pancreatitis pt now with no abd pain lipase trending down natasha clear liquids ok to advace to full liquids please reconsult surgery if necessary.
[2018-10-13] MEDS: NORMAL SALINE 10 ML SDV (SCHEDULED) IV SCH (10:17)
[2018-10-13] MEDS: ALBUTEROL SULFATE HFA (90 MCG/PUFF) 200 PUFF/8.5 GM MDI IH PRN (10:46)
[2018-10-13] MEDS: FLUTICASONE NASAL SPRAY 50 MCG/SPRY 120 SPRAY/16 GM NAREB SCH (10:47)
[2018-10-13] MEDS: ENOXAPARIN SODIUM INJ 40 MG/0.4 ML DISP.SYRIN SUBCUT SCH (10:48)
[2018-10-13 14:58] VITALS: BP 143/90
--- NOTE | 2018-10-13 15:29 | PSYCHOLOGICAL NOTE ---
Psych Note - Psych Note Date seen by psych provider: 10/13/18 Time seen by psych provider: 14:48 - Chart review. Psych Note: Reason for Consult: Depression Patient was seen yesterday by Behavioral Health Clinician Carlos Varela. Waiting on medication recommendations. Note will follow. Conducted chart review. Also spoke to yesterday's Clinician Carlos Varela. Patient presented to the ED 10/08/18 for abdominal pain. She was admitted same day to hospitalist services for acute pancreatitis, asthma, and alcohol dependence. Surgery was consulted and followed patient. They did not have to do surgery. She was started on liquid diet yesterday, noted improvement and less pain. Home medications are listed as Adderall 10MG QD (0800, 1200) and Buspar 15MG TID. Medications being administered in hospital include Ativan 2MG IV Q4H PRN anxiety agitation and 1MG IV Q6H PRN restlessness and anxiety, as well as Valium 2MG Q12. Patient was seen 02/13/13 by telepsych team for SI, she had been petitioned for IVC, admitted to history of Bipolar, supposed to be taking Saphris (had not taken in 3 weeks to a year, variation in what was reported at the time), noted Post Depression (had child November 2012) and admitted to daily use of alcohol (liquor, wine, mixed drinks, Serum Alcohol Level then was 76), she denied other drug use with the exception of smoking 1 pack per day of cigarettes. She was restarted on Saphris 10MG SL #15, IVC rescinded and recommended to follow up with provider in 1 week. Diagnosis: 296.80 (F31.9) Unspecified Bipolar and Related Disorder by History and patient report to Behavioral Health Clinician yesterday 303.90 (F10.20) Alcohol Use Disorder, Severe Impression/Plan: Patient has been cleared from acute psychiatric services. An initial evaluation took place yesterday (10/12/18). Awaiting medication recommendations and note will be submitted.
--- NOTE | 2018-10-13 17:42 | PDOC DISCHARGE SUMMARY ---
General - Admit/Disc Date/PCP Admission Date/Primary Care Provider: 10/08/18 14:06 VALE WHITE MD Discharge Date: 10/13/18 - Discharge Diagnosis (1) Acute pancreatitis Is this a current diagnosis for this admission?: Yes Summary: Resolved with IV fluids and got rest. Had to be on TPN for a very short period of time. Was able to come off of that and was able to eat some macaroni and an egg salad sandwich today without any pain or nausea. (2) Alcohol dependence Is this a current diagnosis for this admission?: Yes Summary: She plans to abstain from now on, and events that she was going to go to some AA meetings. (3) Fatty liver, alcoholic Is this a current diagnosis for this admission?: Yes Summary: As noted above, she plans to quit drinking. - Additional Information Resuscitation Status: Full Code Discharge Diet: As Tolerated Discharge Activity: Slowly Increase Activity Home Medications: Albuterol Sulfate [Proair HFA Inhalation Aerosol 8.5 gm MDI] 2 puff IH Q4HP PRN 10/08/18 Buspirone HCl [Buspar 15 mg Tablet] 15 mg PO TID 10/08/18 Dextroamphetamine/Amphetamine [Adderall 10 mg Tablet] 10 mg PO DAILY@08,12 10/08/18 Loratadine [Claritin 10 mg Tablet] 10 mg PO DAILY 10/08/18 Ranitidine HCl [Zantac 150 mg Tablet] 150 mg PO DAILY 10/08/18 History of Present Illness History of Present Illness: JOSE TRINIDAD is a 33 year old female with a PMH of asthma and daily EtOH use. She presents to [facility] emergency department with a 1 week complaint of abdominal pain. The patient endorses intermittent epigastric/LUQ abdominal pain. Denies nausea or vomiting, endorses diarrhea. The patient reports she took Motrin and Pepto-Bismol in an attempt to treat her symptoms, but offered no relief. Upon arrival to EKG reveals sinus tachycardia, T wave abnormalities in V3, no evidence of infarction or ischemia. Laboratory studies relatively benign with exception of an elevated lipase 1326. US of the abdomen relatively normal, only shows fatty infiltration of the liver. Upon evaluation, the patient is writhing in pain in bed. She points to her epigastric area stating her pain originates there and radiates to her back. The patient just returned from ultrasound, stating that the procedure was very painful because they had to push the probe all over her abdomen. The patient is alert and oriented x3, she answers all questions appropriately. Abdomen is m ildly distended, positive bowel sounds,(+) TTP. Remaining physical exam is completely benign. Plan to admit to hospitalist service for acute pancreatitis. Hospital Course Hospital Course: She was given IV fluids and gut rest and was monitored for signs of withdrawal. Fortunately, she did not display any significant signs of withdrawal. Her lipase initially trended up to over 9400 before starting to trend back down towards the normal range. She was initially on nothing but got resting IV fluids, then she was started on some TPN for a short time. Fortunately she improved rather rapidly and was able to come off of TPN and tolerate at first clear liquids, then full liquids, and soft foods. She experienced no recurrence of her pain or any nausea with this. She plans to abstain from drinking alcohol altogether. She was seen by psychiatry and they made recommendations for her and arrange follow-up for her in 1 week for her history of bipolar disorder. Her labs and examination were reassuring and she was discharged in good condition. Physical Exam Vital Signs: Temp Pulse Resp BP Pulse Ox 98.1 F 96 16 143/90 H 99 10/13/18 15:06 10/13/18 15:06 10/13/18 15:06 10/13/18 15:06 10/13/18 15:06 Intake & Output 10/12/18 10/13/18 10/14/18 06:59 06:59 06:59 Intake Total 4423 4450 615 Output Total 2800 4850 Balance 1623 -400 615 Weight 74.6 kg 87.3 kg General appearance: PRESENT: no acute distress, cooperative, disheveled Respiratory exam: PRESENT: clear to auscultation elissa, symmetrical, unlabored. ABSENT: accessory muscle use, crackles, prolonged expiratory phas, rhonchi, tachypnea, wheezes Cardiovascular exam: PRESENT: RRR, +S1, +S2 Pulses: PRESENT: normal carotid pulses Vascular exam: PRESENT: normal capillary refill GI/Abdominal exam: PRESENT: distended, normal bowel sounds, soft. ABSENT: guarding, rebound, tenderness Extremities exam: ABSENT: clubbing, pedal edema Musculoskeletal exam: PRESENT: normal inspection. ABSENT: deformity Neurological exam: PRESENT: alert, awake, oriented to person, oriented to place, oriented to time, oriented to situation Psychiatric exam: PRESENT: appropriate affect, normal mood Skin exam: PRESENT: dry, warm Results Laboratory Results: 10/13/18 05:40 10/13/18 05:40 10/13/18 10/13/18 05:40 05:40 WBC 6.7 RBC 3.08 L Hgb 8.7 L Hct 26.2 L MCV 85 MCH 28.1 MCHC 33.1 RDW 18.6 H Plt Count 188 Seg Neutrophils % 67.6 Lymphocytes % 18.4 Monocytes % 8.8 Eosinophils % 4.8 Basophils % 0.4 Absolute Neutrophils 4.6 Absolute Lymphocytes 1.2 Absolute Monocytes 0.6 Absolute Eosinophils 0.3 Absolute Basophils 0.0 Sodium 139.5 Potassium 3.3 L Chloride 113 H Carbon Dioxide 21 L Anion Gap 6 BUN 3 L Creatinine 0.48 L Est GFR ( Amer) > 60 Est GFR (Non-Af Amer) > 60 Glucose 81 Calcium 8.2 L Magnesium 1.9 Lipase 494.7 H Impressions: Abdomen Ultrasound 10/08/18 11:28 IMPRESSION: FATTY INFILTRATION OF THE LIVER. OTHERWISE NORMAL RIGHT UPPER QUADRANT ULTRASOUND. Abdomen/Pelvis CT 10/09/18 13:05 IMPRESSION: Acute pancreatitis. Mild -moderate ascites. Guidance Fluoroscopy 10/11/18 00:00 IMPRESSION: SUCCESSFUL PLACEMENT OF A 5 FR DUAL LUMEN 28 CM PICC IN THE LEFT BASILIC VEIN. Interventional Vascular Procedure 10/11/18 00:00 IMPRESSION: SUCCESSFUL PLACEMENT OF A 5 FR DUAL LUMEN 28 CM PICC IN THE LEFT BASILIC VEIN. PICC Line Insertion 10/11/18 00:00 IMPRESSION: SUCCESSFUL PLACEMENT OF A 5 FR DUAL LUMEN 28 CM PICC IN THE LEFT BASILIC VEIN. Qualifiers - * PATIENT BEING DISCHARGED WITH ANY OF THE FOLLOWING DIAGNOSIS: No Plan Time Spent: Greater than 30 Minutes
[2018-10-14] MEDS ORDERED: FAT EMULSIONS 250 ML IV SCH (10:00)
== END 2018-10-13 16:26 | disposition home or self-care (01) | DRG 440 ==
LOC: ER 11:08 → EH 13:16 → INTOOBSV 13:16 → OBSVTOIN 14:06 → 4S 15:32
PROVIDERS: ADMIT Hospitalist; ATTEND Internal Medicine
PROC: 02HV33Z Insertion of Infusion Device into Superior Vena Cava, Percutaneous Approach (ICD-10-PCS; principal; 2018-10-11)
PROC: B518ZZA Fluoroscopy of Superior Vena Cava, Guidance (ICD-10-PCS; 2018-10-11)
PROC: B548ZZA Ultrasonography of Superior Vena Cava, Guidance (ICD-10-PCS; 2018-10-11)
DX: K85.20 Alcohol induced acute pancreatitis without necrosis or infection (principal); G35 Multiple sclerosis; R74.0 Nonspecific elevation of levels of transaminase and lactic acid dehydrogenase [LDH]; K70.0 Alcoholic fatty liver; J45.909 Unspecified asthma, uncomplicated; F10.20 Alcohol dependence, uncomplicated; G71.3 Mitochondrial myopathy, not elsewhere classified; F31.9 Bipolar disorder, unspecified; F41.9 Anxiety disorder, unspecified; F17.210 Nicotine dependence, cigarettes, uncomplicated
CPT/HCPCS: 36415; 36569; 74177; 76705; 76937; 77001; 80048; 80053; 80061; 81001; 82962; 83690; 83735; 84703; 85025; 85027; 93005; 93010; 94640; 96361; 96374; 96375; 99285; J0131; J1170; J1642; J1650; J1885; J2060; J2405; J3010; J3411; J3475; J3480; J3490; J7030; J7120; J7620; S0028; S0119